=== PATIENT | female | born 1965 | race Caucasian/White ===

== ENCOUNTER 2016-10-02 14:30 | Emergency (ER) | payer BC, MEDICARE ==
[~2016-10-02] VITALS: Ht 177.8 cm; Wt 79.7 kg
[2016-10-02 14:36] VITALS: BP 136/103; PULSE 115; RESP 16; TEMP 98.3; O2SAT 99
[2016-10-02] MEDS ORDERED: LEVO100T63 PO (14:48)
[2016-10-02] MEDS ORDERED: FENT50DI T-DERMAL (14:48)
[2016-10-02] MEDS ORDERED: CYMB60CA PO (14:48)
[2016-10-02] MEDS ORDERED: CLON.5 PO (14:48)
[2016-10-02] MEDS ORDERED: PREG300 PO (14:48)
[2016-10-02] MEDS ORDERED: RITA40CA PO (14:48)
--- NOTE | 2016-10-02 14:50 | PD ---
HPI Chief Complaint: Complaint Time Seen by Provider: 14:48 Travel History International Travel<30 days: No Contact w/Intl Traveler<30days: No Traveled to known affect area: No History of Present Illness HPI Patient comes in requesting a prescription for peridium or something similar. Patient states she's had a burning sensation in her bladder as well as dysuria over the past 2 days. Patient states she's had these previously and feels similar. Patient denies any known fevers, nausea, vomiting, diarrhea, chest pain, or shortness of breath. Patient reports associated back pain is uncertain if it is chronic or acute. Patient states that in the past she's similar issue and has resolved after taking Pyridium. PFSH Past Medical History Cancer: Yes (BREAST AND CERVICAL) Medical other: Yes (NEUROPATHY, DEGENERATIVE DISC, OSTEOPENIA,OSTEOARTHRITIS) ?: Not Past Surgical History Other Surgery: Yes (CHEST WALL RECONSTRUCTION) Social History Alcohol Use: No Tobacco Use: Yes Substance Use: No Allergies-Medications (Allergen,Severity, Reaction): Coded Allergies: No Known Allergies (Unverified , 10/02/16) Reported Meds & Prescriptions Reported Meds & Active Scripts Active Bactrim DS (Sulfamethoxazole-Trimethoprim) 800-160 Mg Tab 1 Tab PO BID Pyridium (Phenazopyridine HCl) 200 Mg Tab 200 Mg PO Q8HR Reported Ritalin LA 24 HR (Methylphenidate HCl) 40 Mg Caper 40 Mg PO BID Fentanyl Patch 72 HR (Fentanyl) 50 Mcg/Hr Patch 50 Mcg T-DERMAL Q72H Remove old patch when new one placed. Cymbalta DR (Duloxetine HCl) 60 Mg Capdr 60 Mg PO BID Klonopin (Clonazepam) 0.5 Mg Tab 0.5 Mg PO BID Lyrica (Pregabalin) 300 Mg Cap 300 Mg PO BID Levoxyl (Levothyroxine Sodium) 100 Mcg Tab 100 Mcg PO DAILY Review of Systems Except as stated in HPI: all other systems reviewed are Neg Physical Exam Narrative GENERAL: Well-developed, well nourished, in no acute distress, and non-ill appearing. SKIN: Focused skin assessment warm and dry. Surgical scar noted lower abdomen. HEAD: Atraumatic. Normocephalic. EYES: Pupils equal and round. EOMI. No scleral icterus. No injection or drainage. ENT: No nasal bleeding or discharge. Mucous membranes pink and moist. NECK: Trachea midline. Supple. No nuclear rigidity. RESPIRATORY: No accessory muscle use. No respiratory distress. GASTROINTESTINAL: Abdomen soft, non-tender, nondistended. Hepatic and splenic margins not palpable. Normal bowel sounds 4. No pulsatile mass. MUSCULOSKELETAL: No obvious deformities. No clubbing. No cyanosis. No edema. Full range of motion. NEUROLOGICAL: Awake and alert. No obvious cranial nerve deficits. Motor grossly within normal limits. Normal speech. PSYCHIATRIC: Appropriate mood and affect; insight and judgment normal. Data Data Last Documented VS Vital Signs Date Time Temp Pulse Resp B/P Pulse Ox O2 Delivery O2 Flow Rate FiO2 10/02/16 14:36 98.3 115 16 136/103 99 Orders Urinalysis - C+S If Indicated (10/02/16 14:38) Phenazopyridine (Pyridium) (10/02/16 15:00) Urine Culture (10/02/16 14:35) Labs Laboratory Tests Test 10/02/16 14:35 Urine Collection Type CLEAN CATCH Urine Color YELLOW Urine Turbidity CLEAR Urine pH 5.0 Urine Specific [place] 1.030 Urine Protein 30 mg/dL Urine Glucose (UA) NEG mg/dL Urine Ketones NEG mg/dL Urine Occult Blood NEG Urine Nitrite NEG Urine Bilirubin NEG Urine Leukocyte Esterase NEG Urine RBC 0-3 /hpf Urine WBC 9-14 /hpf Urine Squamous Epithelial > 8 /hpf Cells Urine Bacteria FEW /hpf Urine Mucus FEW /lpf Microscopic Urinalysis Comment CULTURE INDICATED Urine Collection Time 14:35 [facility] Medical Decision Making Medical Screen Exam Complete: Yes Emergency Medical Condition: Yes Differential Diagnosis UTI, dysuria, urethritis, other Narrative Course The patient presentation with history and evaluation are consistent with UTI. There is no evidence of pyelonephritis. The patient is tolerating fluids and no fever. There is no clinical evidence to suggest atypical cervicitis, PID, appendicitis. The patient was discharged on antibiotics and given warnings to return if condition worsens in any way, fever, vomiting and unable to tolerate medications or fluids, back pain or as needed. The patient was instructed to follow up with their physician. The patient agrees with plan of care. Patient in no obvious distress upon re-evaluation. All pertinent laboratory result(s) discussed with patient/family. Patient was asked if they wanted to speak to my attending, which the patient did not wish to do at this time. Any questions/concerns in reference to patient diagnosis/condition discussed and clarified prior to patient's discharge. Reinforced sheer importance of close follow up with patient's primary physician or primary care clinic. Instructed patient to return to ED immediately, if symptoms return/worsen. Pt showed understanding of above instructions. Further instructions and recommendations were detailed in discharge paperwork. Pt ambulated without difficulty out of ED at discharge. Diagnosis Primary Impression: Urinary tract infection Qualified Code: N39.0 - Urinary tract infection without hematuria, site unspecified Patient Instructions: General Instructions, Urinary Tract Infection in Women ( ED) Additional Instructions: Follow-up with your primary care physician in 2-3 days for reevaluation. Take all medication as prescribed. Drink plenty of non-caffeinated and nonalcoholic fluids. Return to the emergency department if symptoms get worse. Med/Other Pt SpecificInfo: Prescription(s) given Scripts Sulfamethoxazole-Trimethoprim (Bactrim DS)800-160 Mg Tab1 Tab PO BID #6 TAB Ref 0 Prov:Mauro Alcala MD 10/02/16 Phenazopyridine (Pyridium)200 Mg [id number] Mg PO Q8HR #6 TAB Ref 0 Prov:Mauro Alcala MD 10/02/16 Disposition: 01 DISCHARGE HOME Condition: Stable Yoel Coleman Oct 02, 2016 14:50
[2016-10-02 14:56] LABS: BLOOD, URINE NEG (NEG); GLUCOSE,URINE NEG (NEG); KETONE, URINE NEG (NEG); NITRITE,URINE NEG (NEG)
[2016-10-02] MEDS ORDERED: PHENAZOPYRIDINE HCL 200 MG TAB PO ONE (15:00)
[2016-10-02 15:14] LABS: METHOD OF COLLECTION CLEAN CATCH; URINE COLOR YELLOW (YELLW/STRAW)
[2016-10-02 15:15] LABS: BACTERIA, URINE FEW /hpf; COMMENT (UR) CULTURE INDICATED; CULTURE IF INDICATED CULTURE INDICATED; MUCUS URINE FEW /lpf (OCC); RBC, URINE 0-3 /hpf (0-3); SQUAMOUS EPITHELIAL CELL URINE > 8 /hpf (0-5)
[2016-10-02] MEDS ORDERED: BACT800T5 PO (15:21)
[2016-10-02] MEDS ORDERED: PYRI200T4 PO (15:21)
== END 2016-10-02 15:44 | disposition home or self-care (01) ==
LOC: PHEFT 14:30
DX: N39.0 Urinary tract infection, site not specified (principal); B96.89 Other specified bacterial agents as the cause of diseases classified elsewhere; Z72.0 Tobacco use
CPT/HCPCS: 81001; 87086; 99283

== ENCOUNTER 2016-10-30 13:57 | Emergency (ER) | payer MEDICARE ==
[~2016-10-30] VITALS: Ht 157.5 cm; Wt 75.3 kg
[~2016-10-30 13:57] MED LIST: BACT800T5 PO; CLON.5 PO; CYMB60CA PO; FENT50DI T-DERMAL; LEVO100T63 PO; PREG300 PO; PYRI200T4 PO; RITA40CA PO
[2016-10-30 14:00] VITALS: PULSE 114; RESP 16; TEMP 98.4; O2SAT 100
[2016-10-30 14:53] LABS: BLOOD, URINE NEG (NEG); GLUCOSE,URINE NEG (NEG); KETONE, URINE TRACE mg/dL (NEG); NITRITE,URINE NEG (NEG)
--- NOTE | 2016-10-30 14:53 | PD ---
HPI . Urinary symptoms Chief Complaint: Complaint Time Seen by Provider: 14:10 Travel History International Travel<30 days: No Contact w/Intl Traveler<30days: No Traveled to known affect area: No History of Present Illness HPI Patient presents with dysuria, frequency and urgency for over a week. The patient reports frequent similar episodes which will usually resolve with Pyridium. The patient states that she has undergone chemotherapy and radiation therapy for both breast cancer and cervical cancer. She has a resultant neuropathy as well as frequent urinary tract infections. The patient states that she now feels a lump in her external genitalia. Patient reports chronic pain related to her neuropathy and rates it as 5/10. PFSH Past Medical History Cancer: Yes (BREAST AND CERVICAL) Chemotherapy: Yes (2009) Respiratory: Yes (Asthma) ?: Not Past Surgical History Hysterectomy: Yes Other Surgery: Yes (CHEST WALL RECONSTRUCTION) Social History Alcohol Use: No Tobacco Use: Yes Substance Use: No Allergies-Medications (Allergen,Severity, Reaction): Coded Allergies: No Known Allergies (Unverified , 10/30/16) Reported Meds & Prescriptions Reported Meds & Active Scripts Active Reported Ritalin LA 24 HR (Methylphenidate HCl) 40 Mg Caper 40 Mg PO BID Fentanyl Patch 72 HR (Fentanyl) 50 Mcg/Hr Patch 50 Mcg T-DERMAL Q72H Remove old patch when new one placed. Cymbalta DR (Duloxetine HCl) 60 Mg Capdr 60 Mg PO BID Klonopin (Clonazepam) 0.5 Mg Tab 0.5 Mg PO BID Lyrica (Pregabalin) 300 Mg Cap 300 Mg PO BID Levoxyl (Levothyroxine Sodium) 100 Mcg Tab 100 Mcg PO DAILY Review of Systems Except as stated in HPI: all other systems reviewed are Neg General / Constitutional: Positive: Chills, Weight Loss Gastrointestinal: Positive: Nausea, Vomiting, Loss of Appetite, No: Diarrhea Genitourinary: Positive: Urgency, Frequency, Dysuria, No: Hematuria Musculoskeletal: Positive: Pain Neurologic: Positive: Paresthesia, Sensory Disturbance Psychiatric: Positive: Anxiety, Depression Physical Exam Narrative GENERAL: Awake and alert. Very expressive. SKIN: Warm and dry. HEAD: Atraumatic. Normocephalic. EYES: Pupils equal and round. Extraocular movements are intact. ENT: No nasal bleeding or discharge. Mucous membranes pink and moist. NECK: Trachea midline. Neck is supple. CARDIOVASCULAR: Regular rate and rhythm. RESPIRATORY: No accessory muscle use. GASTROINTESTINAL: Abdomen soft, non-tender, nondistended. : There is a nodule between the clitoris and the urethra. This probably about 3 or 4 mm in diameter. It is tender. MUSCULOSKELETAL: No obvious deformities. No edema. NEUROLOGICAL: Awake and alert. No obvious cranial nerve deficits. Motor grossly within normal limits. Normal speech. PSYCHIATRIC: Appropriate mood and affect; insight and judgment normal. Data Data Last Documented VS Vital Signs Date Time Temp Pulse Resp B/P Pulse Ox O2 Delivery O2 Flow Rate FiO2 10/30/16 14:00 98.4 114 16 100 Orders Urinalysis - C+S If Indicated (10/30/16 14:09) Urine Culture (10/30/16 14:13) Labs Laboratory Tests Test 10/30/16 14:13 Urine Collection Type CLEAN CATCH Urine Color YELLOW Urine Turbidity CLEAR Urine pH 5.0 Urine Specific [place] 1.025 Urine Protein 100 mg/dL Urine Glucose (UA) NEG mg/dL Urine Ketones TRACE mg/dL Urine Occult Blood NEG Urine Nitrite NEG Urine Bilirubin NEG Urine Leukocyte Esterase TRACE Urine RBC 10-14 /hpf Urine WBC 20-24 /hpf Urine Squamous Epithelial > 8 /hpf Cells Urine Renal Epithelial Cells 0-5 /hpf Urine Bacteria MOD /hpf Urine Hyaline Casts 25-49 /lpf Microscopic Urinalysis Comment CULTURE INDICATED Urine Collection Time 14:13 [facility] Medical Decision Making Medical Screen Exam Complete: Yes Emergency Medical Condition: Yes Differential Diagnosis Final differential diagnosis of urinary symptoms includes but is not limited to UTI, kidney stone, pyelonephritis, bacterial vaginosis, yeast infection, urinary retention Narrative Course Patient presents with symptoms compatible with UTI. She also has a nodule on her external genitalia. I will refer her [facility] for further evaluation of that. Laboratory Tests Test 10/30/16 14:13 Urine Collection Type CLEAN CATCH Urine Color YELLOW Urine Turbidity CLEAR Urine pH 5.0 Urine Specific [place] 1.025 Urine Protein 100 mg/dL Urine Glucose (UA) NEG mg/dL Urine Ketones TRACE mg/dL Urine Occult Blood NEG Urine Nitrite NEG Urine Bilirubin NEG Urine Leukocyte Esterase TRACE Urine RBC 10-14 /hpf Urine WBC 20-24 /hpf Urine Squamous Epithelial > 8 /hpf Cells Urine Renal Epithelial Cells 0-5 /hpf Urine Bacteria MOD /hpf Urine Hyaline Casts 25-49 /lpf Microscopic Urinalysis Comment CULTURE INDICATED Urine Collection Time 14:13 Diagnosis Primary Impression: Urinary tract infection Qualified Code: N30.00 - Acute cystitis without hematuria Additional Impression: Mass of female genital structure Referrals: Nikki Gaytan MD Patient Instructions: General Instructions, Urinary Tract Infection in Women ( [place]) Med/Other Pt SpecificInfo: Prescription(s) given Scripts Phenazopyridine (Pyridium)100 Mg [id number] Mg PO Q8H PRN (DYSURIA) 10 Days Ref 0 Prov:Madeleine Trinh MD 10/30/16 Nitrofurantoin Monohydrate Macrocrystals (Macrobid)100 Mg [id number] Mg PO BID #20 CAP Ref 0 Prov:Madeleine Trinh MD 10/30/16 Disposition: 01 DISCHARGE HOME Condition: Stable Madeleine Trinh MD October 30, 2016 14:53
[2016-10-30 15:00] LABS: METHOD OF COLLECTION CLEAN CATCH
[2016-10-30 15:01] LABS: URINE COLOR YELLOW (YELLW/STRAW)
[2016-10-30 15:02] LABS: COMMENT (UR) CULTURE INDICATED; CULTURE IF INDICATED CULTURE INDICATED; RENAL EPITHELIAL CELLS 0-5 /hpf; SQUAMOUS EPITHELIAL CELL URINE > 8 /hpf (0-5)
[2016-10-30 15:03] LABS: BACTERIA, URINE MOD /hpf
[2016-10-30 15:05] VITALS: BP 131/70; PULSE 68; RESP 20; O2SAT 99
[2016-10-30] MEDS ORDERED: MACR100C2 PO (15:08)
[2016-10-30] MEDS ORDERED: PHEN0.4T PO (15:08)
== END 2016-10-30 15:49 | disposition home or self-care (01) ==
LOC: PHED 13:57
DX: N39.0 Urinary tract infection, site not specified (principal); R11.2 Nausea with vomiting, unspecified; J45.909 Unspecified asthma, uncomplicated; Z79.899 Other long term (current) drug therapy; Z72.0 Tobacco use
CPT/HCPCS: 81001; 87086; 99284

== ENCOUNTER 2017-06-09 06:19 | Day surgery (SDC) | payer OTHER ==
[~2017-06-09] VITALS: Ht 165.1 cm; Wt 72.3 kg
[~2017-06-09 06:19] MED LIST changes: -BACT800T5 PO; +MACR100C2 PO; +PHEN0.4T PO; -PYRI200T4 PO
[2017-06-09 06:35] VITALS: BP 155/84; PULSE 101; RESP 20; TEMP 99.6; O2SAT 96
[2017-06-09] MEDS ORDERED: ZOLO50TA PO (06:45)
[2017-06-09] MEDS ORDERED: FOSA70TA PO (06:45)
[2017-06-09] MEDS ORDERED: OXYC-395 PO (06:46)
[2017-06-09] MEDS ORDERED: ATOR10TA15 PO (06:48)
[2017-06-09] MEDS ORDERED: LIDO1PAD52 TOPICAL (06:49)
[2017-06-09] MEDS ORDERED: [UNRECOGNIZED DRUG - CODE] PO (06:51)
[2017-06-09] MEDS ORDERED: SODIUM CHLORIDE 0.9% 1000 ML IV SCH ×2 (07:00→08:30)
[2017-06-09] MEDS ORDERED: VANCOMYCIN HCL 1000 MG VIAL ONE (07:26)
[2017-06-09] MEDS ORDERED: SODIUM CHLOR 0.9% 250 ML INJ 250 ML ONE (07:26)
[2017-06-09] MEDS ORDERED: VANCOMYCIN 1000 MG/NS 250 ML - implanted port/tunneled catheter IV SCH ×2 (07:26)
[2017-06-09] MEDS ORDERED: POVIDONE IODINE 5% (ANTISEPSIS KIT) 4 APPLICATIONS EACH NARE SCH (07:30)
[2017-06-09] MEDS ORDERED: CHLORHEXIDINE GLUCONATE 2 % 1 PACK (2 CLOTHS) TOPICAL SCH (07:30)
[2017-06-09] MEDS ORDERED: ceFAZolin 2 GM PREMIX 50 ML - implanted port/tunneled catheter insertion IV SCH (07:39)
[2017-06-09] MEDS ORDERED: MIDAZOLAM HCL 2 MG/2 ML VIAL ONE (07:39)
[2017-06-09] MEDS ORDERED: ceFAZolin 2 GM PREMIX 50 ML ONE (07:39)
[2017-06-09 09:00] VITALS: BP 130/68; PULSE 85; RESP 17; TEMP 98.3; O2SAT 94
[2017-06-09 09:15] VITALS: BP 150/74; PULSE 76; RESP 18; O2SAT 97
--- NOTE | 2017-06-09 09:26 | PD.RAD ---
Post Procedure Progress Note Pre Procedure Diagnosis: (1) Vulvar cancer, carcinoma Post Procedure Diagnosis: (1) Vulvar cancer, carcinoma Procedure Date: Jun 09, 2017 Supervising Radiologist: Rell Dale Estimated blood loss: 3cc Anesthesia: Local, Conscious Sedation Plan of Activity Patient to Unit: [facility]OPU Patient Condition: Good Additional Comments: Port placed via the right IJ Port in good position OK for use Full dictated report to follow See PACS Report for procedural detail/treatment Rell Dale MD Jun 09, 2017 09:26
[2017-06-09] MEDS ORDERED: SODIUM CHLORIDE 0.9% FLUSH 10 ML FLUSH IVF PRN (09:30)
[2017-06-09 09:45] VITALS: BP 123/71; PULSE 82; RESP 17; O2SAT 96
[2017-06-09 10:15] VITALS: BP 114/68; PULSE 78; RESP 18; O2SAT 97
--- NOTE | 2017-06-09 14:03 | RADRPT ---
EXAM DATE/TIME: 06/09/2017 08:49 [facility] COMPARISON: No previous studies available for comparison. INDICATIONS : Patient presents with squamous cell carcinoma in need of port placement for treatment. MEDICAL HISTORY : Anemia Anxiety Arthritis Cancer GERD Osteoarthritis Osteoporosis Peptic Ulcer disease Periperal neuropathy Thyroid disease Uterine fibroids SURGICAL HISTORY : Ovarian tumor removal Tubal ligation Breast biopsy 2007 Hysterectomy in 2005 ENCOUNTER: Initial ACUITY: 2 months PAIN SCORE: 0/10 LOCATION: N/A FLUORO TIME: 0.6 minutes IMAGE SERIES: SEDATION TIME: 30 minutes ACCESS: Right internal jugular vein SEDATION: 1.) 4 midazolam (Versed) IV 2.) 200 mcg fentanyl (Sublimaze) IV Prophylactic antibiotics were administered with appropriate pre-procedure timing. Vancomycin within 2 hours of procedure, Ancef (or alternative) within 1 hour of procedure. DEVICE: 1. [address] [place] single lumen Smart Port CT PROCEDURE : 1. Continuous pulse oximetry and EKG monitoring. 2. Intravenous conscious sedation. 3. Ultrasound guidance for venous access. 4. Fluoroscopic guided implantable central venous port placement. The patient was placed supine. The neck was prepped in sterile fashion. Full sterile technique was u sed, including cap, mask, sterile gloves and gown, and a large sterile sheet. Hand hygiene and 2% ch lorhexidine Betadine was utilized per protocol for cutaneous antisepsis with appropriate dry time for site. Sterile gel and sterile probe cover were utilized for ultrasound guidance. The skin and sub cutaneous tissues were infiltrated with local anesthetic solution. Under direct ultrasound guidance, central venous access was accomplished in the targeted vessel. The ultrasound images depicting access guidance were stored and saved to PACS for permanent record. A s ubcutaneous pocket was created using blunt dissection. The port was introduced to the pocket. The c atheter tubing was fed through a subcutaneous tunnel to the venotomy site. The catheter tubing was c ut to a suitable length and then was introduced through a valved Peel-Away sheath and positioned with catheter tubing tip at the cavo-atrial junction level. The pocket incision was closed with subcutic ular Vicryl suture. Steri-Strips were applied. The port was flushed and locked with heparin solutio n per protocol. Sterile dressing was applied to the site. The patient tolerated the procedure well. Conscious sedation was performed with the prescribed dosages and duration as above in the presence of an independent trained radiology nurse to assist in the monitoring of the patient. EKG and oximetry remained stable throughout the procedure. The patient tolerated the procedure well and there were no complications. The patient was sent to post anesthesia recovery in stable condition. CONCLUSION: Uncomplicated ultrasound and fluoroscopic guided implanted central venous port catheter placement as described in detail above. An 8 [place]ese Power port was placed. Rell Dale MD on June 09, 2017 at 14:01 Board Certified Radiologist. This report was verified electronically.
== END 2017-06-09 11:20 | disposition home or self-care (01) ==
LOC: HROP 06:19 → HRIP 06:20 → HROP 11:20
PROVIDERS: ATTEND Obstetrics & Gynecology Gynecologic Oncology
DX: Z45.2 Encounter for adjustment and management of vascular access device (principal); C51.9 Malignant neoplasm of vulva, unspecified; C50.912 Malignant neoplasm of unspecified site of left female breast; E07.9 Disorder of thyroid, unspecified; F41.9 Anxiety disorder, unspecified; K21.9 Gastro-esophageal reflux disease without esophagitis; M19.90 Unspecified osteoarthritis, unspecified site; M81.0 Age-related osteoporosis without current pathological fracture
CPT/HCPCS: 36561; 76937; 77001; 99152; 99153; C1788; J0690; J1642; J2250; J3010; J3370; J7030; J7050

== ENCOUNTER 2017-07-27 16:29 | Emergency (ER) | payer OTHER ==
[~2017-07-27] VITALS: Ht 180.3 cm; Wt 67.0 kg
[~2017-07-27 16:29] MED LIST changes: +ATOR10TA15 PO; -CYMB60CA PO; -FENT50DI T-DERMAL; +FOSA70TA PO; +LIDO1PAD52 TOPICAL; -MACR100C2 PO; +OXYC-395 PO; -PHEN0.4T PO; -PREG300 PO; +ZOLO50TA PO; +[UNRECOGNIZED DRUG - CODE] PO
[2017-07-27 16:49] VITALS: BP 123/73; PULSE 140; RESP 20; TEMP 99.2; O2SAT 98
[2017-07-27 19:38] LABS: AUTOMATED NEUTROPHIL # 3.9 TH/MM3 (1.8-7.7); BASOPHIL % 0.3 % (0.0-2.0); EOSINOPHIL # 0.3 TH/MM3 (0-0.4); EOSINOPHIL % 4.5 % (0.0-4.0); HEMATOCRIT 41.1 % (35.0-46.0); HEMOGLOBIN 14.8 GM/DL (11.6-15.3); LYMPH % 19.2 % (9.0-44.0); LYMPHOCYTE # 1.1 TH/MM3 (1.0-4.8); MEAN CELL VOLUME 89.6 FL (80.0-100.0); MEAN CORPUSCULAR HEMOGLOBIN 32.2 PG (27.0-34.0); MEAN CORPUSCULAR HGB CONC 35.9 % (32.0-36.0); MEAN PLATELET VOLUME 7.2 FL (7.0-11.0); MONO % 5.1 % (0.0-8.0); MONOCYTE # 0.3 TH/MM3 (0-0.9); NEUT % 70.9 % (16.0-70.0); PLATELET COUNT 279 TH/MM3 (150-450); RED BLOOD COUNT 4.59 MIL/MM3 (4.00-5.30); RED CELL DISTRIBUTION WIDTH 14.2 % (11.6-17.2); WHITE BLOOD COUNT 5.6 TH/MM3 (4.0-11.0)
[2017-07-27 19:57] LABS: PROTHROMBIN TIME - PATIENT 10.1 SEC (9.8-11.6)
[2017-07-27 20:24] LABS: ALBUMIN 4.1 GM/DL (3.4-5.0); ALKALINE PHOSPHATASE 93 U/L (45-117); ALT (GPT) 57 U/L (10-53); AST (GOT) 49 U/L (15-37); BICARBONATE 27.8 MEQ/L (21.0-32.0); BLOOD UREA NITROGEN 19 MG/DL (7-18); CALCIUM 9.5 MG/DL (8.5-10.1); CHLORIDE 92 MEQ/L (98-107); CREATININE 0.97 MG/DL (0.50-1.00); GLOMERULAR FILTRATION RATE 60 ML/MIN (>89); GLUCOSE,RANDOM 114 MG/DL (74-106); SODIUM (NA) 132 MEQ/L (136-145); TOTAL BILIRUBIN ADULT 0.6 MG/DL (0.2-1.0); TOTAL PROTEIN 8.1 GM/DL (6.4-8.2)
[2017-07-27] MEDS ORDERED: POTASSIUM CHLORIDE 20 MEQ CONTROLLED RELEASE TAB PO ONE (22:30)
[2017-07-27 23:21] LABS: MAGNESIUM 1.6 MG/DL (1.5-2.5)
[2017-07-27 23:25] LABS: ACETAMINOPHEN LESS THAN 2.0 MCG/ML (10.0-30.0)
--- NOTE | 2017-07-27 23:57 | PD ---
HPI . Generalized weakness Chief Complaint: General Weakness Time Seen by Provider: 22:12 Travel History International Travel<30 days: No Contact w/Intl Traveler<30days: No Traveled to known affect area: No History of Present Illness HPI 52-year-old female who notes on presentation "I have had cancer 3 times, I am hungry and I want to sleep. I need something to help me sleep I want yogurt and a 7 up." Patient not offering further history to this examiner. Patient is noted to have a history of bipolar, and has been noncompliant with her medications for quite some time. Patient does get radiation treatments for recurrence of cervical and/or breast cancer, patient's was to take potassium supplementation as well for which she is noncompliant. [facility] Past Medical History Narrative Medical Past medical history reviewed Cancer: Yes (BREAST, CERVICAL) Cardiovascular Problems: No Chemotherapy: Yes Diabetes: No Endocrine: No Gastrointestinal Disorders: Yes (gerd) Genitourinary: No Hepatitis: No Hiatal Hernia: No Immune Disorder: No Musculoskeletal: No Neurologic: No Psychiatric: Yes (anxiety) Reproductive: No Respiratory: Yes (Asthma) Radiation Therapy: Yes Thyroid Disease: Yes (hypothyroid) Tetanus Vaccination: Unknown ?: Not Past Surgical History Hysterectomy: Yes Other Surgery: Yes (CHEST WALL RECONSTRUCTION) Social History Alcohol Use: No Tobacco Use: Yes Substance Use: No Allergies-Medications (Allergen,Severity, Reaction): Coded Allergies: No Known Allergies (Unverified Allergy, Unknown, 07/27/17) Reported Meds & Prescriptions Reported Meds & Active Scripts Active Reported Atorvastatin (Atorvastatin Calcium) 10 Mg Tab 10 Mg PO HS Oxycodone (Oxycodone HCl) 10 Mg Tab 10 Mg PO Q4H PRN Zoloft (Sertraline HCl) 50 Mg Tab 50 Mg PO DAILY Fosamax (Alendronate Sodium) 70 Mg Tab 70 Mg PO Q7D Levoxyl (Levothyroxine Sodium) 100 Mcg Tab 100 Mcg PO DAILY Narrative Medication Allergies and medications reviewed allergies and medications reviewed Review of Systems ROS Limitations: Poor Historian Except as stated in HPI: all other systems reviewed are Neg General / Constitutional: No: Fever Eyes: No: Visual changes HENT: No: Headaches Cardiovascular: No: Chest Pain or Discomfort Respiratory: No: Shortness of Breath Gastrointestinal: No: Abdominal Pain Genitourinary: No: Dysuria Musculoskeletal: No: Pain Skin: No Rash Neurologic: No: Weakness Psychiatric: Positive: Disorder of Thought, No: Anxiety, Depression, Suicidal Ideations, Mood Disorder, Substance Abuse, Homicidal Ideation Endocrine: No: Polydipsia Hematologic/Lymphatic: No: Easy Bruising Physical Exam Narrative GENERAL: Awake alert, oriented 3, slightly pressured speech, see HPI. SKIN: Warm and dry. No diaphoresis cyanosis or pallor HEAD: Atraumatic. Normocephalic. EYES: Pupils equal and round. No scleral icterus. No injection or drainage. ENT: No nasal bleeding or discharge. Mucous membranes pink and moist. NECK: Trachea midline. No JVD. CARDIOVASCULAR: Regular rate and rhythm. RESPIRATORY: No accessory muscle use. Clear to auscultation. Breath sounds equal bilaterally. GASTROINTESTINAL: Abdomen soft, non-tender, nondistended. Hepatic and splenic margins not palpable. MUSCULOSKELETAL: Extremities without clubbing, cyanosis, or edema. No obvious deformities. NEUROLOGICAL: Awake and alert. No obvious gross focal deficits PSYCHIATRIC: slightly pressured speech, slightly manic. Patient not answering questions appropriately Data Data Last Documented VS Vital Signs Date Time Temp Pulse Resp B/P (MAP) Pulse Ox O2 Delivery O2 Flow Rate FiO2 07/27/17 22:07 Room Air 07/27/17 16:49 99.2 140 20 123/73 (90) 98 Orders Orders Electrocardiogram (07/27/17 ) Complete Blood Count With Diff (07/27/17 17:01) Comprehensive Metabolic Panel (07/27/17 17:01) Lipase (07/27/17 17:01) Prothrombin Time / Inr (Pt) (07/27/17 17:01) Act Partial Throm Time (Ptt) (07/27/17 17:01) Urinalysis - C+S If Indicated (07/27/17 17:01) Magnesium (Mg) (07/27/17 22:24) Drug Screen, Random Urine (07/27/17 22:24) Alcohol (Ethanol) (07/27/17 22:24) Salicylates (Aspirin) (07/27/17 22:24) Tylenol (Acetaminophen) (07/27/17 22:24) Potassium Chloride (Kcl) (07/27/17 22:30) Psych Screen (07/27/17 23:38) Ct Brain W/O Iv Contrast(Rout) (07/27/17 ) Labs Laboratory Tests Test 07/27/17 18:44 07/27/17 22:35 White Blood Count 5.6 TH/MM3 Red Blood Count 4.59 MIL/MM3 Hemoglobin 14.8 GM/DL Hematocrit 41.1 % Mean Corpuscular Volume 89.6 FL Mean Corpuscular Hemoglobin 32.2 PG Mean Corpuscular Hemoglobin Concent 35.9 % Red Cell Distribution Width 14.2 % Platelet Count 279 TH/MM3 Mean Platelet Volume 7.2 FL Neutrophils (%) (Auto) 70.9 % Lymphocytes (%) (Auto) 19.2 % Monocytes (%) (Auto) 5.1 % Eosinophils (%) (Auto) 4.5 % Basophils (%) (Auto) 0.3 % Neutrophils # (Auto) 3.9 TH/MM3 Lymphocytes # (Auto) 1.1 TH/MM3 Monocytes # (Auto) 0.3 TH/MM3 Eosinophils # (Auto) 0.3 TH/MM3 Basophils # (Auto) 0.0 TH/MM3 CBC Comment DIFF FINAL Differential Comment Prothrombin Time 10.1 SEC Prothromb Time International Ratio 1.0 RATIO Activated Partial Thromboplast Time 22.6 SEC Blood Urea Nitrogen 19 MG/DL Creatinine 0.97 MG/DL Random Glucose 114 MG/DL Total Protein 8.1 GM/DL Albumin 4.1 GM/DL Calcium Level 9.5 MG/DL Alkaline Phosphatase 93 U/L Aspartate Amino Transf (AST/SGOT) 49 U/L Alanine Aminotransferase (ALT/SGPT) 57 U/L Total Bilirubin 0.6 MG/DL Sodium Level 132 MEQ/L Potassium Level 2.8 MEQ/L Chloride Level 92 MEQ/L Carbon Dioxide Level 27.8 MEQ/L Anion Gap 12 MEQ/L Estimat Glomerular Filtration Rate 60 ML/MIN Lipase 234 U/L Magnesium Level 1.6 MG/DL Salicylates Level 1.8 MG/DL Acetaminophen Level LESS THAN 2.0 MCG/ML Ethyl Alcohol Level LESS THAN 3 MG/DL MDM Medical Decision Making Medical Screen Exam Complete: Yes Emergency Medical Condition: Yes Medical Record Reviewed: Yes Differential Diagnosis Bipolar, manic phase, medication noncompliance Narrative Course Laboratory examinations no significant abnormalities. CT had no evidence of metastatic disease or other acute intracranial abnormalities Patient medically cleared for psychiatric evaluation Michael Odonnell MD Jul 27, 2017 23:57
--- NOTE | 2017-07-28 01:31 | RADRPT ---
EXAM DATE/TIME: 07/28/2017 01:03 [facility] COMPARISON: No previous studies available for comparison. INDICATIONS : Altered mental status. RADIATION DOSE: 56.77 CTDIvol (mGy) MEDICAL HISTORY : Carcinoma, breast. Chemotherapy SURGICAL HISTORY : None. ENCOUNTER: Initial ACUITY: 1 day PAIN SCALE: 0/10 LOCATION: cranial TECHNIQUE: Multiple contiguous axial images were obtained of the head. Using automated exposure control and adj ustment of the mA and/or kV according to patient size, radiation dose was kept as low as reasonably a chievable to obtain optimal diagnostic quality images. DICOM format image data is available electro nically for review and comparison. FINDINGS: CEREBRUM: The ventricles are normal for age. No evidence of midline shift, mass lesion, hemorrhage or acute in farction. No extra-axial fluid collections are seen. POSTERIOR FOSSA: The cerebellum and brainstem are intact. The 4th ventricle is midline. The cerebellopontine angle i s unremarkable. EXTRACRANIAL: The visualized portion of the orbits is intact. SKULL: The calvaria is intact. No evidence of skull fracture. CONCLUSION: Negative noncontrast head CT Hood Ibrahim MD on July 28, 2017 at 1:29 Board Certified Radiologist. This report was verified electronically.
[2017-07-28 07:05] VITALS: BP 106/71; PULSE 86; RESP 16; TEMP 98.1; O2SAT 98
--- NOTE | 2017-07-28 08:10 | EKG ---
Date Performed: 07/27/2017 Time Performed: 18:38:30 PTAGE: 52 years EKG: SINUS TACHYCARDIA POSSIBLE RIGHT ATRIAL ENLARGEMENT LEFT ATRIAL ENLARGEMENT PATTERN CONSIST ENT WITH PULMONARY DISEASE INFERIOR MYOCARDIAL INFARCTION ABNORMAL ECG NO PREVIOUS TRACING DOCTOR: Hubert Lance Interpretating Date/Time 07/28/2017 08:09:51
--- NOTE | 2017-07-28 10:25 | PD ---
Physical Exam Narrative Patient was seen by Dr. Odonnell overnight. She says that she came in because of nausea and vomiting. She says she last received chemo on Wednesday. She says she has anti-nausea medication at home. Exam shows no abdominal tenderness. Data Data Last Documented VS Vital Signs Date Time Temp Pulse Resp B/P (MAP) Pulse Ox O2 Delivery O2 Flow Rate FiO2 07/28/17 07:10 86 16 98 Room Air 07/28/17 07:05 98.1 106/71 (83) Orders Orders Electrocardiogram (07/27/17 ) Complete Blood Count With Diff (07/27/17 17:01) Comprehensive Metabolic Panel (07/27/17 17:01) Lipase (07/27/17 17:01) Prothrombin Time / Inr (Pt) (07/27/17 17:01) Act Partial Throm Time (Ptt) (07/27/17 17:01) Urinalysis - C+S If Indicated (07/27/17 17:01) Magnesium (Mg) (07/27/17 22:24) Drug Screen, Random Urine (07/27/17 22:24) Alcohol (Ethanol) (07/27/17 22:24) Salicylates (Aspirin) (07/27/17 22:24) Tylenol (Acetaminophen) (07/27/17 22:24) Potassium Chloride (Kcl) (07/27/17 22:30) Psych Screen (07/27/17 23:38) Ct Brain W/O Iv Contrast(Rout) (07/27/17 ) Labs Laboratory Tests Test 07/27/17 18:44 07/27/17 22:35 White Blood Count 5.6 TH/MM3 Red Blood Count 4.59 MIL/MM3 Hemoglobin 14.8 GM/DL Hematocrit 41.1 % Mean Corpuscular Volume 89.6 FL Mean Corpuscular Hemoglobin 32.2 PG Mean Corpuscular Hemoglobin Concent 35.9 % Red Cell Distribution Width 14.2 % Platelet Count 279 TH/MM3 Mean Platelet Volume 7.2 FL Neutrophils (%) (Auto) 70.9 % Lymphocytes (%) (Auto) 19.2 % Monocytes (%) (Auto) 5.1 % Eosinophils (%) (Auto) 4.5 % Basophils (%) (Auto) 0.3 % Neutrophils # (Auto) 3.9 TH/MM3 Lymphocytes # (Auto) 1.1 TH/MM3 Monocytes # (Auto) 0.3 TH/MM3 Eosinophils # (Auto) 0.3 TH/MM3 Basophils # (Auto) 0.0 TH/MM3 CBC Comment DIFF FINAL Differential Comment Prothrombin Time 10.1 SEC Prothromb Time International Ratio 1.0 RATIO Activated Partial Thromboplast Time 22.6 SEC Blood Urea Nitrogen 19 MG/DL Creatinine 0.97 MG/DL Random Glucose 114 MG/DL Total Protein 8.1 GM/DL Albumin 4.1 GM/DL Calcium Level 9.5 MG/DL Alkaline Phosphatase 93 U/L Aspartate Amino Transf (AST/SGOT) 49 U/L Alanine Aminotransferase (ALT/SGPT) 57 U/L Total Bilirubin 0.6 MG/DL Sodium Level 132 MEQ/L Potassium Level 2.8 MEQ/L Chloride Level 92 MEQ/L Carbon Dioxide Level 27.8 MEQ/L Anion Gap 12 MEQ/L Estimat Glomerular Filtration Rate 60 ML/MIN Lipase 234 U/L Magnesium Level 1.6 MG/DL Salicylates Level 1.8 MG/DL Acetaminophen Level LESS THAN 2.0 MCG/ML Ethyl Alcohol Level LESS THAN 3 MG/DL MDM Supervised Visit with CANDIE: No Narrative Course Patient states, "I want some food." When asked why she came in though, she says she cannot eat. She also says she cannot sleep. I asked the patient if she had food at home, she said yes. She was able to drink Gatorade without vomiting. She will be discharged home to follow up with her doctors. She never had any psychiatric complaints. She denies any suicidal or homicidal ideation. Diagnosis Primary Impression: Nausea & vomiting Qualified Codes: R11.2 - Nausea with vomiting, unspecified Patient Instructions: Acute Nausea and Vomiting (ED), General Instructions Additional Instruction: Drink plenty of fluids. Follow up with your doctors. Return to the ED as needed for any worsening symptoms. Disposition: 01 DISCHARGE HOME Condition: Stable Aster Eldridge MD Jul 28, 2017 10:25
[2017-07-28 10:50] VITALS: BP 130/77; TEMP 97.8
== END 2017-07-28 10:54 | disposition home or self-care (01) ==
LOC: NEPE 16:29
DX: R11.2 Nausea with vomiting, unspecified (principal); E03.9 Hypothyroidism, unspecified; Z72.0 Tobacco use; Z79.899 Other long term (current) drug therapy
CPT/HCPCS: 70450; 80053; 80307; 83690; 83735; 85025; 85610; 85730; 93005; 99285; J1642

== ENCOUNTER 2017-08-07 04:28 | Emergency (ER) | payer OTHER ==
[~2017-08-07 04:28] MED LIST changes: -CLON.5 PO; -LIDO1PAD52 TOPICAL; -RITA40CA PO; -[UNRECOGNIZED DRUG - CODE] PO
[2017-08-08] MEDS ORDERED: OMEP20CA2 PO (06:58)
[2017-08-08] MEDS ORDERED: GABA800T PO (06:59)
== END 2017-08-07 04:47 | disposition left against medical advice (07) ==
LOC: NED 04:28
DX: Z00.00 Encounter for general adult medical examination without abnormal findings (principal); Z53.21 Procedure and treatment not carried out due to patient leaving prior to being seen by health care provider
CPT/HCPCS: 99281

== ENCOUNTER 2017-08-07 05:19 | Observation (INO) | payer MEDICARE, OTHER ==
[~2017-08-07] VITALS: Ht 179.1 cm; Wt 70.8 kg
[2017-08-07] VITALS (8 sets, daily range): BP systolic 108–139; BP diastolic 59–73; PULSE 74–103; RESP 16–18; TEMP 97.1–98.2; O2SAT 92–99
--- NOTE | 2017-08-07 05:46 | PD ---
HPI Chief Complaint: Numbness/Tingling Time Seen by Provider: 05:31 Travel History International Travel<30 days: No Contact w/Intl Traveler<30days: No Traveled to known affect area: No History of Present Illness HPI 52 y/o female presents stating she got chemotherapy today in the clinic with Dr. Aguilar and she tried to check an earlier here but it was too busy so she left before being seen. Report was that she was found sleeping on a couch and she wanted to check back in for neuropathy in her feet. She states Dr. Aguilar is her oncologist. She denies any fever or other concurrent complaints at this time. She states she had blood work done before chemotherapy yesterday. Quality is tingly. Severity is localized to feet. She denies specific modifying factors. PFSH Past Medical History Anxiety: Yes Cancer: Yes (BREAST, CERVICAL, VAGINAL) Cardiovascular Problems: No Chemotherapy: Yes Diabetes: No Endocrine: No Gastrointestinal Disorders: Yes GERD: Yes Genitourinary: No Hepatitis: No Hiatal Hernia: No Immune Disorder: No Musculoskeletal: No Neurologic: No Psychiatric: Yes (anxiety) Reproductive: No Respiratory: Yes (Asthma) Radiation Therapy: Yes Thyroid Disease: Yes (hypothyroid) ?: Not Tubal Ligation: Yes Past Surgical History Abdominal Surgery: Yes Hysterectomy: Yes Tonsillectomy: Yes Other Surgery: Yes (CHEST WALL RECONSTRUCTION, SINUS SURGERY) Social History Alcohol Use: No Tobacco Use: No Substance Use: No (PT DENIES) Allergies-Medications (Allergen,Severity, Reaction): Coded Allergies: No Known Allergies (Unverified Allergy, Unknown, 08/07/17) Reported Meds & Prescriptions Reported Meds & Active Scripts Active Reported Atorvastatin (Atorvastatin Calcium) 10 Mg Tab 10 Mg PO HS Oxycodone (Oxycodone HCl) 10 Mg Tab 10 Mg PO Q4H PRN Zoloft (Sertraline HCl) 50 Mg Tab 50 Mg PO DAILY Fosamax (Alendronate Sodium) 70 Mg Tab 70 Mg PO Q7D Levoxyl (Levothyroxine Sodium) 100 Mcg Tab 100 Mcg PO DAILY Review of Systems Except as stated in HPI: all other systems reviewed are Neg Physical Exam Narrative GENERAL: 52 y/o female in no apparent distress SKIN: Focused skin assessment warm/dry. HEAD: Atraumatic. Normocephalic. EYES: Pupils equal and round. No scleral icterus. No injection or drainage. ENT: No nasal bleeding or discharge. Mucous membranes pink and moist. NECK: Trachea midline. No JVD. CARDIOVASCULAR: Regular rate and rhythm. RESPIRATORY: No accessory muscle use. Clear to auscultation. Breath sounds equal bilaterally. GASTROINTESTINAL: Abdomen soft, non-tender, nondistended. MUSCULOSKELETAL: No obvious deformities. No clubbing. No cyanosis. No edema. NEUROLOGICAL: Awake and alert. No obvious cranial nerve deficits. Motor grossly within normal limits. Normal speech. Data Data Last Documented VS Vital Signs Date Time Temp Pulse Resp B/P (MAP) Pulse Ox O2 Delivery O2 Flow Rate FiO2 08/07/17 05:46 18 98 Room Air 08/07/17 05:20 97.2 103 139/68 (91) Orders Orders Complete Blood Count With Diff (08/07/17 05:32) Basic Metabolic Panel (Bmp) (08/07/17 05:32) Iv Access Insert/Monitor (08/07/17 05:32) Ecg Monitoring (08/07/17 05:32) Oximetry (08/07/17 05:32) Magnesium (Mg) (08/07/17 06:39) Potassium Chloride Eff (K-Lyte Cl Eff) (08/07/17 06:45) Admit Order (Ed Use Only) (08/07/17 06:43) Labs Laboratory Tests Test 08/07/17 05:46 White Blood Count 3.5 TH/MM3 Red Blood Count 2.62 MIL/MM3 Hemoglobin 8.6 GM/DL Hematocrit 23.0 % Mean Corpuscular Volume 87.9 FL Mean Corpuscular Hemoglobin 33.0 PG Mean Corpuscular Hemoglobin Concent 37.6 % Red Cell Distribution Width 13.6 % Platelet Count 96 TH/MM3 Mean Platelet Volume 7.2 FL Neutrophils (%) (Auto) 81.8 % Lymphocytes (%) (Auto) 10.0 % Monocytes (%) (Auto) 7.7 % Eosinophils (%) (Auto) 0.2 % Basophils (%) (Auto) 0.3 % Neutrophils # (Auto) 2.9 TH/MM3 Lymphocytes # (Auto) 0.3 TH/MM3 Monocytes # (Auto) 0.3 TH/MM3 Eosinophils # (Auto) 0.0 TH/MM3 Basophils # (Auto) 0.0 TH/MM3 CBC Comment AUTO DIFF Differential Comment AUTO DIFF CONFIRMED Platelet Estimate LOW Platelet Morphology Comment NORMAL Blood Urea Nitrogen 13 MG/DL Creatinine 1.41 MG/DL Random Glucose 154 MG/DL Calcium Level 7.5 MG/DL Sodium Level 134 MEQ/L Potassium Level 2.3 MEQ/L Chloride Level 95 MEQ/L Carbon Dioxide Level 28.1 MEQ/L Anion Gap 11 MEQ/L Estimat Glomerular Filtration Rate 39 ML/MIN Magnesium Level 1.2 MG/DL [facility] Medical Decision Making Medical Screen Exam Complete: Yes Emergency Medical Condition: Yes Medical Record Reviewed: Yes (pmh confirmed, labs reviewed) Interpretation(s) CBC & BMP Diagram 08/07/17 05:46 Calcium Level 7.5 #L Differential Diagnosis Electrolyte abnormality, chemo effect, neuropathy Narrative Course We will check lab work and reevaluate labs with critical values noted, potassium replacement started, magnesium added on, will admit for further care, patient updated Physician Communication Physician Communication dr ricketts states will follow, thinks anemia should not be that significant from chemo dr french agrees to admit Diagnosis Primary Impression: Hypokalemia Additional Impression: Anemia Qualified Codes: D64.9 - Anemia, unspecified Admitting Information Admitting Physician Requests: Admit Scripts Gabapentin (Gabapentin) 300 Mg Cap 300 MG PO HS for peripheral neuropathy, #30 CAP 0 Refills Prov: Neelima Foreman MD 08/09/17 Ondansetron (Zofran) 4 Mg Tab 4 MG PO Q6HR Y for NAUSEA OR VOMITING, #20 TAB 0 Refills Prov: Neelima Foreman MD 08/09/17 [oxyCODONE SR] 20 MG TABCR No Conflict Check 20 MG PO Q12HR for Pain Management, #20 TAB 0 Refills Prov: Neelima Foreman MD 08/09/17 Dolly Wiseman MD Aug 07, 2017 05:46
[2017-08-07 06:04] LABS: AUTOMATED NEUTROPHIL # 2.9 TH/MM3 (1.8-7.7); BASOPHIL % 0.3 % (0.0-2.0); EOSINOPHIL % 0.2 % (0.0-4.0); HEMOGLOBIN 8.6 GM/DL (11.6-15.3); LYMPHOCYTE # 0.3 TH/MM3 (1.0-4.8); MEAN CELL VOLUME 87.9 FL (80.0-100.0); MEAN PLATELET VOLUME 7.2 FL (7.0-11.0); MONO % 7.7 % (0.0-8.0); MONOCYTE # 0.3 TH/MM3 (0-0.9); NEUT % 81.8 % (16.0-70.0); PLATELET COUNT 96 TH/MM3 (150-450); RED BLOOD COUNT 2.62 MIL/MM3 (4.00-5.30); RED CELL DISTRIBUTION WIDTH 13.6 % (11.6-17.2); WHITE BLOOD COUNT 3.5 TH/MM3 (4.0-11.0)
[2017-08-07 06:08] LABS: MEAN CORPUSCULAR HGB CONC 37.6 % (32.0-36.0)
[2017-08-07 06:24] LABS: BICARBONATE 28.1 MEQ/L (21.0-32.0); CALCIUM 7.5 MG/DL (8.5-10.1); CREATININE 1.41 MG/DL (0.50-1.00)
[2017-08-07] MEDS ORDERED: POTASSIUM CHLORIDE 25 MEQ EFFERVESCENT TAB PO ONE ×3 (06:45→18:45)
[2017-08-07] MEDS ORDERED: LACTULOSE SYRUP 20 GM/30 ML CUP PO PRN (06:45)
[2017-08-07] MEDS ORDERED: BISACODYL 10 MG SUPP RECTAL PRN (06:45)
[2017-08-07] MEDS ORDERED: SODIUM CHLORIDE 0.9% FLUSH 10 ML FLUSH IV FLUSH PRN (06:45)
[2017-08-07] MEDS ORDERED: ACETAMINOPHEN 325 MG TAB PO PRN (06:45)
[2017-08-07] MEDS ORDERED: MAGNESIUM HYDROXIDE SUSP 30 ML CUP PO PRN (06:45)
[2017-08-07] MEDS ORDERED: SENNOSIDES 8.6 MG TAB PO PRN (06:45)
[2017-08-07] MEDS ORDERED: MORPHINE SULFATE 2 MG/ML INJ IV PUSH PRN (06:45)
[2017-08-07] MEDS ORDERED: ALENDRONATE SODIUM 70 MG TAB PO SCH (08:45)
[2017-08-07] MEDS ORDERED: GABAPENTIN 300 MG CAP PO ONE (08:45)
--- NOTE | 2017-08-07 08:51 | HHI.HP ---
[facility] Primary Care Physician Unknown Admission Diagnosis hypokalemia, anemia Diagnoses: Chief Complaint: Tingling of the bilateral calves and feet Travel History International Travel<30 Days: No Contact w/Intl Traveler <30 Da: No Traveled to Known Affected Are: No History of Present Illness This is a 52-year-old female with past medical history of breast and cervical cancer in remission who is now being treated for vaginal cancer with chemotherapy radiation on 01/16 cycles who is complaining of bilateral calf and feet tingling. Patient stated that she had chemotherapy at Dr. Aguilar office for 8 hours yesterday and then when she got home around 7 PM she started feeling abnormal sensation of the bilateral calf and feet described as tingling or is if her feet are trying to wake up. Patient very anxious to get out and wants to be treated quickly for this. She said that she feels nauseous but this does not prevent her from eating. Patient stated that she has always had a poor appetite. Denies any emesis. Denies any abdominal pain. Denied any fevers or chills. She denies any fecal or urinary incontinence. She also denies any lower extremity weakness. All other review of system reviewed and negative. Past Family Social History Past Medical History Hyperlipidemia Hypothyroidism Anxiety History of cervical breast cancer in remission. Currently being treated for vaginal cancer. Osteoporosis. Past Surgical History 23 surgeries for abdominal breast flap. Port placements. Total hysterectomy. Bilateral mastectomy. Reported Medications Reported Atorvastatin (Atorvastatin Calcium) 10 Mg Tab 10 Mg PO HS Oxycodone (Oxycodone HCl) 10 Mg Tab 10 Mg PO Q4H PRN Zoloft (Sertraline HCl) 50 Mg Tab 50 Mg PO DAILY Fosamax (Alendronate Sodium) 70 Mg Tab 70 Mg PO Q7D Levoxyl (Levothyroxine Sodium) 100 Mcg Tab 100 Mcg PO DAILY Allergies: Coded Allergies: No Known Allergies (Unverified Allergy, Unknown, 08/07/17) Active Ordered Medications Current Medications Potassium Bicarb/ Potassium Chloride (K-Lyte Cl Eff) 50 meq ONCE ONCE PO ; Start 08/07/17 at 06:45; Stop 08/07/17 at 06:46; Status DC Sodium Chloride 1,000 ml @ 100 mls/hr Q10H IV ; Start 08/07/17 at 06:43 Sodium Chloride (NS Flush) 2 ml UNSCH PRN IV FLUSH FLUSH AFTER USING IV ACCESS ; Start 08/07/17 at 06:45 Sodium Chloride (NS Flush) 2 ml BID IV FLUSH ; Start 08/07/17 at 09:00 Ondansetron HCl (Zofran Inj) 4 mg Q6H PRN IVP NAUSEA OR VOMITING; Start at 06:45 Acetaminophen (Tylenol) 650 mg Q6H PRN PO FEVER/PAIN SCALE 1 TO 2; Start at 06:45 Morphine Sulfate (Morphine Inj) 2 mg Q3H PRN IV PUSH Pain 6-10; Start 08/07/17 at 06:45 Oxycodone HCl (Roxicodone) 10 mg Q4H PRN PO PAIN SCALE 3 TO 5; Start 08/07/17 at 06:45 Senna/Docusate Sodium (Deb-Colace) 1 tab BID PO ; Start 08/07/17 at 09:00 Magnesium Hydroxide (Milk Of Magnesia Liq) 30 ml Q12H PRN PO Mild constipation ; Start 08/07/17 at 06:45 Sennosides (Senokot) 17.2 mg Q12H PRN PO Moderate constipation; Start 08/07/17 at 06:45 Bisacodyl (Dulcolax Supp) 10 mg DAILY PRN RECTAL SEVERE CONSITIPATION/ IF NPO ; Start 08/07/17 at 06:45 Lactulose (Lactulose Liq) 30 ml DAILY PRN PO SEVERE CONSITIPATION / IF PO; Start 08/07/17 at 06:45 Gabapentin (Neurontin) 300 mg ONCE ONCE PO ; Start 08/07/17 at 08:45; Stop at 08:46; Status UNV Family History Father mother has hypertension. Mother had history of breast cancer. Social History Occasionally smokes a couple cigarettes a day. She stated that this has not been long but cannot give me a timeline. Denies any alcohol or illicit drug use. Physical Exam Vital Signs Vital Signs Date Time Temp Pulse Resp B/P (MAP) Pulse Ox O2 Delivery O2 Flow Rate FiO2 08/07/17 05:46 18 98 Room Air 08/07/17 05:20 97.2 103 18 139/68 (91) 99 Physical Exam GENERAL: This is a well-nourished, well-developed patient, in no apparent distress. SKIN: No rashes, ecchymoses or lesions. Cool and dry. Port in place. Dry clean and intact. HEAD: Atraumatic. Normocephalic. No temporal or scalp tenderness. EYES: Pupils equal round and reactive. Extraocular motions intact. No scleral icterus. No injection or drainage. ENT: Nose without bleeding, purulent drainage or septal hematoma. Throat without erythema, tonsillar hypertrophy or exudate. Uvula midline. Airway patent. NECK: Trachea midline. No JVD or lymphadenopathy. Supple, nontender, no meningeal signs. CARDIOVASCULAR: Regular rate and rhythm without murmurs, gallops, or rubs. RESPIRATORY: Clear to auscultation. Breath sounds equal bilaterally. No wheezes , rales, or rhonchi. GASTROINTESTINAL: Abdomen soft, non-tender, nondistended. No hepato-splenomegaly , or palpable masses. No guarding. MUSCULOSKELETAL: Extremities without clubbing, cyanosis, or edema. No joint tenderness, effusion, or edema noted. No calf tenderness. Negative Homans sign bilaterally. NEUROLOGICAL: Awake and alert. Cranial nerves II through XII intact. Motor grossly within normal limits. Five out of 5 muscle strength in all muscle groups. Normal speech. Bilateral calves/feet positive tingling sensation with palpitation. Laboratory Laboratory Tests Test 08/07/17 05:46 White Blood Count 3.5 Red Blood Count 2.62 Hemoglobin 8.6 Hematocrit 23.0 Mean Corpuscular Volume 87.9 Mean Corpuscular Hemoglobin 33.0 Mean Corpuscular Hemoglobin Concent 37.6 Red Cell Distribution Width 13.6 Platelet Count 96 Mean Platelet Volume 7.2 Neutrophils (%) (Auto) 81.8 Lymphocytes (%) (Auto) 10.0 Monocytes (%) (Auto) 7.7 Eosinophils (%) (Auto) 0.2 Basophils (%) (Auto) 0.3 Neutrophils # (Auto) 2.9 Lymphocytes # (Auto) 0.3 Monocytes # (Auto) 0.3 Eosinophils # (Auto) 0.0 Basophils # (Auto) 0.0 CBC Comment AUTO DIFF Differential Comment AUTO DIFF CONFIRMED Platelet Estimate LOW Platelet Morphology Comment NORMAL Blood Urea Nitrogen 13 Creatinine 1.41 Random Glucose 154 Calcium Level 7.5 Sodium Level 134 Potassium Level 2.3 Chloride Level 95 Carbon Dioxide Level 28.1 Anion Gap 11 Estimat Glomerular Filtration Rate 39 Result Diagram: 08/07/1746 08/07/1746 Caprini VTE Risk Assessment Caprini VTE Risk Assessment: Mod/High Risk (score >= 2) Caprini Risk Assessment Model Point Value = 1 Point Value = 2 Point Value = 3 Point Value = 5 Age 41-60 Minor surgery BMI > 25 kg/m2 Swollen legs Varicose veins or History of unexplained or recurrent spontaneous Oral contraceptives or hormone replacement Sepsis (< 1 month) Serious lung disease, including pneumonia (< 1 month) Abnormal pulmonary function Acute myocardial infarction Congestive heart failure (< 1 month) History of inflammatory bowel disease Medical patient at bed rest Age 61-74 Arthroscopic surgery Major open surgery (> 45 min) Laparoscopic surgery (> 45 min) Malignancy Confined to bed (> 72 hours) Immobilizing plaster cast Central venous access Age >= 75 History of VTE Family history of VTE Factor V Leiden Prothrombin 13420T Lupus anticoagulant Anticardiolipin antibodies Elevated serum homocysteine Heparin-induced thrombocytopenia Other congenital or acquired thrombophilia Stroke (< 1 month) Elective arthroplasty Hip, pelvis, or leg fracture Acute spinal cord injury (< 1 month) Prophylaxis Regimen Total Risk Factor Score Risk Level Prophylaxis Regimen 0-1 Low Early ambulation 2 Moderate Order ONE of the following: *Sequential Compression Device (SCD) *Heparin 5000 units SQ BID 3-4 Higher Order ONE of the following medications: *Heparin 5000 units SQ TID *Enoxaparin/Lovenox 40 mg SQ daily (WT < 150 kg, CrCl > 30 mL/min) *Enoxaparin/Lovenox 30 mg SQ daily (WT < 150 kg, CrCl > 10-29 mL/min) *Enoxaparin/Lovenox 30 mg SQ BID (WT < 150 kg, CrCl > 30 mL/min) AND/OR *Sequential Compression Device (SCD) 5 or more Highest Order ONE of the following medications: *Heparin 5000 units SQ TID (Preferred with Epidurals) *Enoxaparin/Lovenox 40 mg SQ daily (WT < 150 kg, CrCl > 30 mL/min) *Enoxaparin/Lovenox 30 mg SQ daily (WT < 150 kg, CrCl > 10-29 mL/min) *Enoxaparin/Lovenox 30 mg SQ BID (WT < 150 kg, CrCl > 30 mL/min) AND *Sequential Compression Device (SCD) Assessment and Plan Assessment and Plan This is a 52-year-old female currently being treated for vaginal cancer with chemotherapy radiation on 01/16 who presented with abrupt onset peripheral neuropathy right after chemotherapy Peripheral neuropathy, abrupt onset -May be secondary to chemotherapy versus hypokalemia. -Magnesium was ordered pending results. Potassium is 2.3 with no other symptoms. -Patient already order 50 mEq of potassium. Will recheck potassium at 10 am. If magnesium is low we will replenish. -We will give patient a dose of Neurontin to see if this helps with symptoms. -Continue to monitor. She may need a EMG as outpatient. Renal insufficiency -Most likely secondary to dehydration. Creatinine trending up from normal a couple weeks ago to 1.41. -We will give patient IV fluids. Strict ins and out. Monitor creatinine. Avoid nephrotoxins. Avoid NSAIDs and contrast. Anemia -Hemoglobin 2 days ago was 12.6 now 8.5. No signs of any GI bleed or source. -Continue to monitor clinically. Patient does have a escort service attendant/oncologist. If there is no active bleeding can be worked up as outpatient. May be secondary to chemotherapy. Will recheck hemoglobin to make sure that this is a true value. -Oncologist was consulted. Hypothyroidism/osteoporosis/anxiety/hyperlipidemia -Continue with home medication DVT prophylaxis -Encourage ambulation. At the moment will avoid chemoprophylaxis since hemoglobin dropped drastically. Code Status Discussed CODE STATUS with patient she stated that she is a DNR. Discussed Condition With patient Neelima Foreman MD Aug 07, 2017 08:51
[2017-08-07] MEDS ORDERED: HEPARIN SODIUM - SQ 10,000 UNITS/ML VIAL SQ SCH (09:00)
[2017-08-07] MEDS: DOCUSATE SODIUM 50 MG/SENNA 8.6 MG TAB PO SCH ×2 (09:00→20:07)
[2017-08-07] MEDS: SODIUM CHLOR 0.9% 1000 ML INJ 1,000 ML IV SCH ×2 (09:01→21:56)
[2017-08-07] MEDS: SODIUM CHLORIDE 0.9% FLUSH 10 ML FLUSH IV FLUSH SCH ×2 (09:02→20:07)
[2017-08-07] MEDS: LEVOTHYROXINE SODIUM 100 MCG TAB PO SCH (09:16)
[2017-08-07] MEDS: SERTRALINE HCL 50 MG TAB PO SCH (10:37)
[2017-08-07] MEDS ORDERED: MAGNESIUM SULFATE 4 GM PREMIX 100 ML IV ONE (11:30)
[2017-08-07] MEDS ORDERED: MAGNESIUM SULFATE 1 GM PREMIX 100 ML IV SCH ×2 (12:00→19:45)
[2017-08-07 13:03] LABS: MAGNESIUM 1.2 MG/DL (1.5-2.5)
[2017-08-07 14:15] LABS: % SATURATION IRON PROFILE 44.5 % (20-50); IRON (FE) 96 MCG/DL (50-170); TOTAL IRON BINDING CAPACITY 216 MCG/DL (250-450)
[2017-08-07 14:40] LABS: FERRITIN 219 NG/ML (8-252); FOLATE 16.1 NG/ML (3.1-17.5)
[2017-08-07] MEDS: MAGNESIUM SULFAT 1 GM PREMIX 100 ML x2 bags IV SCH ×4 (14:45→20:05)
[2017-08-07] MEDS ORDERED: POTASSIUM CHLOR 10 MEQ PREMIX 100 ML IV ONE (15:00)
--- NOTE | 2017-08-07 15:11 | MB ---
cc: Keon Cruz MD DATE OF CONSULT: 08/07/2017 REASON FOR CONSULTATION: Patient with critical drop in worsening anemia and electrolyte derangement, specifically hypomagnesemia and hypokalemia. ACTIVE ONCOLOGIC DIAGNOSIS: Squamous cell carcinoma of the vulva/vagina. She is currently on radiation with weekly dosing of chemotherapy; she has received 4 weekly doses of cisplatin and last week she received carboplatin due to difficulty tolerating cisplatin due to electrolyte imbalances and electrolyte derangement. PREVIOUS ONCOLOGIST DIAGNOSES: 1. Cervical carcinoma diagnosed in 1995, she is status post hysterectomy and TIGIST and BSO. This was performed at the [facility] in [place]. She did not require radiation or chemotherapy at that time. 2. 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 This was treated with left breast mastectomy, axillary lymph node dissection, along with sentinel lymph node biopsy. She then received Adriamycin and Cytoxan, followed by Taxol for a total of 8 cycles. She then received radiation. She was not a candidate for adjuvant endocrine therapy given triple negative status. The patient tells me she had 5 out of 7 lymph nodes involved with metastatic breast cancer at that time. CHIEF COMPLAINT: Ms. Hagen reports multiple complaints, mostly pertaining to weakness, fatigue, diarrhea, leg weakness, leg tingling and blood tinged vaginal discharge. I would like to mention, it is somewhat difficult obtaining a history from this patient because she has a very tangential thought process, she goes from talking about her cancer treatment to talking about her Will and her attorneys to her previous life and marriages. It is very hard to get a coherent history, therefore I have had to rely very heavily on the past medical history, our clinic outpatient oncology notes and other ux consultant notes. HISTORY OF PRESENT ILLNESS: Ms. Hagen is a 52-year-old female. She is originally from the [place], [place] area. She lived and worked in [facility] for most of her life. 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 She is and had been living at home alone in [facility]. She has 1 son of her own and 1 stepdaughter. Ms. Hagen was diagnosed last fall with a squamous cell carcinoma, which arose from the vulva. The tumor was in the periurethral area. The tumor was locally advanced and nonresectable. She underwent a thorough examination by Dr. Nirali Aguilar as well as staging studies which included MRI of the pelvis. She was recommended concurrent chemoradiotherapy to a definitive dose followed by possible surgical resection. Treatment was initiated in early July and initial therapy consisted of weekly doses of cisplatin which were delivered between 07/09 and 07/30 (4 weekly doses). She did develop progressive hypomagnesemia and electrolyte disturbances, as well as ringing in the ears. She was therefore transitioned to weekly carboplatin as of 08/06/2017. The patient underwent a CBC on 08/05/2017 at our clinic, she was noted to have a hemoglobin of 12.5 grams per deciliter at that time with a hematocrit of 33.7% and a platelet count of 136,000. Repeat blood work performed on 08/07/[address] [facility] emergency department revealed a dramatic decrease in her hemoglobin, down from 12.5 to 8.6 grams per deciliter (delta of 4 grams per deciliter) and a 10 percentage point decrease in her hematocrit. Her platelet counts also dropped down from 136,000 to 96,000. The oncology/hematology service has been asked to see her for further workup and management. Additional laboratory abnormalities include hyponatremia, severe hypokalemia, and acute on chronic renal insufficiency. PAST MEDICAL HISTORY: 1. Squamous cell carcinoma of the vulva/periurethral area. 2. Previous history of squamous cell carcinoma of the cervix. 3. Previous history of ductal carcinoma of the left breast. 4. Fibromyalgia. 5. Asthma. 6. Anxiety. 7. Osteoporosis. 8. Peptic ulcer disease. 9. Peripheral neuropathy. PAST SURGICAL HISTORY: 1. Hysterectomy, mastectomy on the left side, ovarian tumor removal. 2. Plastic surgery including tummy tuck. 3. Tubal ligation. 4. Vulvar biopsies. GYNECOLOGIC HISTORY: 2, para 1; 1 interrupted . She is postmenopausal. FAMILY HISTORY: Mother is alive, she had breast cancer status post lumpectomy. Father is alive, he has CLL. No other oncologist diagnoses. 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 She is a current smoker, smoking about a half a pack a day, she has smoked for the 25-30 years. ALLERGIES: NO KNOWN DRUG ALLERGIES. CURRENT INPATIENT MEDICATIONS: 1. Normal saline 100 mL per hour. 2. Tylenol 650 mg p.o. q.6 hours. 3. Atorvastatin 10 mg p.o. at bedtime. 4. Dulcolax 10 mg per rectum for severe constipation. 5. Senna Colace 1 tablet p.o. b.i.d. 6. Gabapentin 300 mg p.o. x 1. 7. Lactulose 30 mL p.o. daily. 8. Levothyroxine 100 mcg p.o. daily. 9. Magnesium hydroxide/Milk of Magnesia 30 mL p.o. q.12 hours as needed for mild constipation. 10. Morphine sulfate 2 mg IV q.3 hours as needed for pain. 11. Zofran 4 mg IV q.6 hours as needed for nausea and vomiting. 12. Oxycodone 10 mg p.o. q.4 hours as needed for pain. 13. Sertraline 50 mg p.o. daily. REVIEW OF SYSTEMS: A 13-point review of systems are obtained. The following are the pertinent positives and negative: CONSTITUTIONAL: Patient report fatigue and weakness, nausea. She reports feeling feverish, but denies fevers. She denies night sweats. She reports loss of weight HEENT: Denies headaches, blurry vision, difficulty swallowing or soreness in the throat. RESPIRATORY: Denies difficulty breathing, cough, hemoptysis, pleuritic chest pain. CARDIOVASCULAR: Denies angina-like chest pain, PND, orthopnea. GASTROINTESTINAL: She does report having some diarrhea. GENITOURINARY: She reports burning with the urine. She does report some blood tinged vaginal discharge but she describes it more as a smear as opposed to blood flow. She reports it is only blood tinged when she wipes. CENTRAL NERVOUS SYSTEMS: Denies any focal or sensory motor deficits. MUSCULOSKELETAL: Denies any focal aches or pains other than the vulvovaginal area where she is receiving radiation. PHYSICAL EXAMINATION: VITAL SIGNS: Temperature 98.2 degree Fahrenheit, heart rate 81 beats per minute, respiratory rate 18, blood pressure 108/59, O2 sats are 99% on room air. GENERAL PHYSICAL APPEARANCE: Ms. Hagen is a middle aged female, she is laying in bed in the emergency department. She appears to be in no acute distress, she speaks in full sentences. She has a candid and pleasant demeanor. HEENT: Head is atraumatic, normocephalic. Conjunctivae are mildly pale, sclerae are anicteric, EOMI, PERRLA. Oral exam: No pharyngeal erythema. NECK: No palpable cervical, supraclavicular lymphadenopathy. RESPIRATORY: On posterior exam she has good air movement bilaterally without any added breath sounds. CARDIOVASCULAR: Regular rate and rhythm, S1 and S2, no obvious murmurs, rubs, or gallops. ABDOMEN: Protuberant belly, soft, no obvious tenderness, no obvious masses noted, no palpable hepatosplenomegaly. LOWER EXTREMITIES: No pretibial edema, no calf tenderness. BREASTS: Examination was performed because a female nurse video player mechanic was not present; however, it was evident that she had had major breast reconstruction on the left side. CENTRAL NERVOUS SYSTEMS: No focal sensory or motor deficits. LABORATORY FINDINGS: Blood work date 08/07/2017: WBC count 3.5, hemoglobin 8.6 grams per deciliter, hematocrit 23%, platelet count 96, absolute neutrophil count is 2.9. Chemistries: Sodium 134, potassium 3.3, chloride 95, bicarb 28, BUN 13, creatinine is 1.41, EGFR 39 mL per minute, random glucose 154, calcium 7.5, magnesium is 1.2. ASSESSMENT: Ms. Hagen is 52-year-old female with a diagnosis of squamous cell carcinoma of the periurethral area, this assessed to be a vulvar squamous cell carcinoma. She is currently on treatment with concurrent chemoradiotherapy and has received between 07/09 and 08/06, 4 total doses of weekly cisplatin dosed at 40 mg per meter squared and 1 dose of weekly carboplatin which was delivered on 08/06/2017. This was dosed to an AUC of 2. The patient has had progressive renal insufficiency and hypomagnesemia. These are likely related to renal toxicity and magnesium dumping related to cisplatin therapy. She has been receiving concurrent radiation as well. Ms. Hagen presents to this facility with complaints of progressive weakness, fatigue, tingling and numbness of the feet and legs and diarrhea. She denies noting overt blood loss other than blood tinged discharge from the vulvovaginal area, which she describes as scant. Blood work performed at this facility reveals a hemoglobin of 8.6 grams per deciliter, which is an approximate 4 gram drop from blood work done just 48 hours ago. Additionally, she is noted to have worsening renal function and significant hypomagnesemia and hypokalemia. The patient has been admitted to this hospital for further workup and management of the anemia and hydration as well as electrolyte replacement. RECOMMENDATIONS: 1. Squamous cell carcinoma of the vulva: She is currently on radiation chemotherapy which is designed to be to a definitive dose, subsequent management including possible surgical resection will be determined after therapy is completed and maximal response to present treatment has been assessed. 2. Anemia: I will request repeat CBC if this has not already been done, I am unable to explain the significant drop in hemoglobin and hematocrit over the past 48 hours, especially given her lack of symptoms of overt bleeding. A 3.5 to 4 gram per deciliter drop in hemoglobin should translate into about 3 or maybe even 4 units of blood in the average size person. 3. Obtain stool for occult blood testing to rule out heme positive stools and the GI tract as a possible source of bleeding. 4. Hypomagnesemia: Replace magnesium and potassium. Recommend hydration with normal saline. MD JESSICA Barragan/MARYANN , 11:31 AM , 03:10 PM
[2017-08-07] MEDS: ATORVASTATIN 10 MG TAB PO SCH (20:06)
[2017-08-07 20:14] LABS: MAGNESIUM 1.9 MG/DL (1.5-2.5)
[2017-08-08] VITALS (23 sets, daily range): BP systolic 101–137; BP diastolic 64–72; PULSE 72–94; RESP 16–18; TEMP 97.8–98.5; O2SAT 97–99
[2017-08-08 05:51] LABS: AUTOMATED NEUTROPHIL # 1.8 TH/MM3 (1.8-7.7); BASOPHIL % 0.2 % (0.0-2.0); EOSINOPHIL # 0.1 TH/MM3 (0-0.4); EOSINOPHIL % 3.5 % (0.0-4.0); HEMATOCRIT 21.6 % (35.0-46.0); LYMPH % 18.6 % (9.0-44.0); LYMPHOCYTE # 0.5 TH/MM3 (1.0-4.8); MEAN CELL VOLUME 88.8 FL (80.0-100.0); MEAN CORPUSCULAR HEMOGLOBIN 32.9 PG (27.0-34.0); MEAN PLATELET VOLUME 7.5 FL (7.0-11.0); MONO % 7.7 % (0.0-8.0); MONOCYTE # 0.2 TH/MM3 (0-0.9); PLATELET COUNT 77 TH/MM3 (150-450); RED BLOOD COUNT 2.43 MIL/MM3 (4.00-5.30); RED CELL DISTRIBUTION WIDTH 13.8 % (11.6-17.2); WHITE BLOOD COUNT 2.6 TH/MM3 (4.0-11.0)
[2017-08-08 06:29] LABS: ALBUMIN 2.7 GM/DL (3.4-5.0); BICARBONATE 29.8 MEQ/L (21.0-32.0); CALCIUM 7.3 MG/DL (8.5-10.1); CALCIUM-PROTEIN CORRECTED 8.2 MG/DL (8.5-10.1); CREATININE 1.49 MG/DL (0.50-1.00); TOTAL BILIRUBIN ADULT 0.2 MG/DL (0.2-1.0); TOTAL PROTEIN 5.4 GM/DL (6.4-8.2)
[2017-08-08] MEDS ORDERED: POTASSIUM CHLORIDE 20 MEQ CONTROLLED RELEASE TAB PO ONE (06:45)
[2017-08-08] MEDS ORDERED: OMEP20CA2 PO (06:58)
[2017-08-08] MEDS ORDERED: GABA800T PO (06:59)
[2017-08-08] MEDS: POTASSIUM CHLOR 20 MEQ PREMIX 100 ML IV SCH ×2 (06:59→08:09)
[2017-08-08 07:20] LABS: MAGNESIUM 1.9 MG/DL (1.5-2.5)
[2017-08-08] MEDS: LEVOTHYROXINE SODIUM 100 MCG TAB PO SCH (08:09)
[2017-08-08 08:50] LABS: RETIC # 41.9 MIL/L (20.0-150.0); RETIC % 1.7 % (0.4-3.0)
[2017-08-08] MEDS: DOCUSATE SODIUM 50 MG/SENNA 8.6 MG TAB PO SCH ×2 (08:51→20:11)
[2017-08-08] MEDS: ONDANSETRON HCL 4 MG/2 ML VIAL IVP PRN ×3 (08:51→21:38)
[2017-08-08] MEDS: SERTRALINE HCL 50 MG TAB PO SCH (08:51)
[2017-08-08] MEDS: SODIUM CHLORIDE 0.9% FLUSH 10 ML FLUSH IV FLUSH SCH ×2 (09:00→20:12)
[2017-08-08] MEDS: PANTOPRAZOLE SOD 20 MG DELAYED RELEASE TAB PO SCH (11:21)
[2017-08-08] MEDS ORDERED: HYDROmorphone HCL PF 2 MG/ML VIAL IV PUSH ONE (12:00)
--- NOTE | 2017-08-08 12:00 | PD.ONC.PN ---
Subjective Subjective Remarks Afebrile Patient reports she has intense pain in her legs from neuropathy Asking for gabapentin to be restarted Asking for an increase in her oxycodone Denies bleeding Objective Data Date Time Temp Pulse Resp B/P (MAP) Pulse Ox O2 Delivery O2 Flow Rate FiO2 08/08/17 11:17 98.1 73 18 128/64 (85) 97 08/08/17 10:00 76 08/08/17 09:00 80 08/08/17 08:12 97.8 77 18 101/67 (78) 98 08/08/17 08:00 74 08/08/17 07:00 75 08/08/17 04:13 98.4 72 16 125/71 (89) 98 08/08/17 00:27 97.8 77 16 117/70 (86) 99 08/08/17 00:19 74 08/07/17 23:06 74 08/07/17 19:58 98.1 76 18 134/73 (93) 98 08/07/17 18:16 97.1 79 18 117/69 (85) 92 08/07/17 18:05 08/07/17 18:01 87 16 128/73 (91) 99 Room Air 08/07/17 14:47 81 16 108/59 (75) 99 Room Air Result Diagram: 08/08/17 0400 08/08/17 0400 Laboratory Results Laboratory Tests Test 08/07/17 19:31 08/08/17 04:00 Potassium Level 3.0 MEQ/L 2.7 MEQ/L Magnesium Level 1.9 MG/DL 1.9 MG/DL White Blood Count 2.6 TH/MM3 Red Blood Count 2.43 MIL/MM3 Hemoglobin 8.0 GM/DL Hematocrit 21.6 % Mean Corpuscular Volume 88.8 FL Mean Corpuscular Hemoglobin 32.9 PG Mean Corpuscular Hemoglobin Concent 37.0 % Red Cell Distribution Width 13.8 % Platelet Count 77 TH/MM3 Mean Platelet Volume 7.5 FL Neutrophils (%) (Auto) 70.0 % Lymphocytes (%) (Auto) 18.6 % Monocytes (%) (Auto) 7.7 % Eosinophils (%) (Auto) 3.5 % Basophils (%) (Auto) 0.2 % Neutrophils # (Auto) 1.8 TH/MM3 Lymphocytes # (Auto) 0.5 TH/MM3 Monocytes # (Auto) 0.2 TH/MM3 Eosinophils # (Auto) 0.1 TH/MM3 Basophils # (Auto) 0.0 TH/MM3 CBC Comment AUTO DIFF Differential Comment AUTO DIFF CONFIRMED Platelet Estimate LOW Platelet Morphology Comment NORMAL Basophilic Stippling FAINT Reticulocyte Count 1.7 % Absolute Reticulocyte Count 41.9 MIL/L Blood Urea Nitrogen 15 MG/DL Creatinine 1.49 MG/DL Random Glucose 115 MG/DL Total Protein 5.4 GM/DL Albumin 2.7 GM/DL Calcium Level 7.3 MG/DL Alkaline Phosphatase 58 U/L Aspartate Amino Transf (AST/SGOT) 16 U/L Alanine Aminotransferase (ALT/SGPT) 18 U/L Total Bilirubin 0.2 MG/DL Sodium Level 134 MEQ/L Chloride Level 97 MEQ/L Carbon Dioxide Level 29.8 MEQ/L Anion Gap 7 MEQ/L Estimat Glomerular Filtration Rate 36 ML/MIN Protein Corrected Calcium 8.2 MG/DL Administered Medications Medications (Trade) Dose Ordered Sig/Woo Route PRN Reason Start Time Stop Time Status Last Admin Dose Admin Sodium Chloride (NS Flush) 2 ml BID IV FLUSH 08/07/17 09:00 08/07/17 20:07 Ondansetron HCl (Zofran Inj) 4 mg Q6H PRN IVP NAUSEA OR VOMITING 08/07/17 06:45 08/08/17 08:51 Oxycodone HCl (Roxicodone) 10 mg Q4H PRN PO PAIN SCALE 3 TO 5 08/07/17 06:45 08/08/17 08:51 Senna/Docusate Sodium (Deb-Colace) 1 tab BID PO 08/07/17 09:00 08/08/17 08:51 Atorvastatin Calcium (Lipitor) 10 mg HS PO 08/07/17 21:00 08/07/17 20:06 Levothyroxine Sodium (Synthroid) 100 mcg DAILY PO 08/07/17 09:00 08/08/17 08:09 Sertraline HCl (Zoloft) 50 mg DAILY PO 08/07/17 09:00 08/08/17 08:51 Pantoprazole Sodium (Protonix) 20 mg DAILY PO 08/08/17 10:30 08/08/17 11:21 Objective Remarks GENERAL: Older female sitting upright in bed in no obvious distress SKIN: Warm and dry. HEAD: Normocephalic. EYES: No injection or drainage. NECK: Supple, trachea midline. No JVD or lymphadenopathy. CARDIOVASCULAR: Regular rate and rhythm without murmurs. RESPIRATORY: Clear anteriorly. Breathing unlabored at rest. GASTROINTESTINAL: Abdomen soft, non-tender, nondistended. EXTREMITIES: No cyanosis, or edema. NEUROLOGICAL: No obvious focal deficit. Awake, alert, and oriented x3. Assessment/Plan Problem List: (1) Vulvar cancer, carcinoma ICD Codes: C51.9 - Malignant neoplasm of vulva, unspecified Plan: --Future chemotherapy will be planned outpatient Hx/Workup: Patient was originally diagnosed with cervical carcinoma in 1995 and had a hysterectomy with bilateral salpingo-oophorectomy at that time she did not require any chemo or radiation. She was also diagnosed in 2008 with a stage IIb triple negative invasive ductal carcinoma of the left breast. She had a left mastectomy followed by ACT chemotherapy for 8 cycles. Patient also has a diagnosis of squamous cell carcinoma of the vulva/vagina. She is currently undergoing weekly chemotherapy with radiation. She was previously getting cisplatin but recently switched to carboplatin due to electrolyte imbalances. (2) Anemia ICD Codes: D64.9 - Anemia, unspecified Status: Acute Plan: -- Hemoglobin was noted to be 12.5 on 08/05. -- Upon arrival to the ER her hemoglobin was 8.6 on 08/07. -- Patient denies any bleeding. Assessment 52-year-old female with history of vulvar cancer presents to the emergency room for pain in her feet however it was noted that she had a significant drop in hemoglobin from 2 days prior and she was admitted Plan 1. Await stool for Hemoccult 2. Monitor for bleeding 3. Monitor CBC Attending Statement The exam, history, and the medical decision-making described in the above note were completed with the assistance of the mid-level provider. I reviewed and agree with the findings presented. I attest that I had a [id number] encounter with the patient on the same day, and personally performed and documented my assessment and findings in the medical record. Patient seen and examined, vital signs, labs and medications reviewed. Subjectively; she reports feeling well, she tells me she is eating well and reports her pain is also improved. She tells me she is constipated. She denies overt bleeding. She denies difficulty breathing. Currently on electrolyte replacement therapy for severe hypokalemia. Hemoglobin and hematocrit are stable at this time. Problem Qualifiers (1) Anemia: Qualified Codes: D64.9 - Anemia, unspecified Meghan Lee Aug 08, 2017 12:00 Keon Cruz MD Aug 08, 2017 17:04
[2017-08-08] MEDS: GABAPENTIN 400 MG CAP PO SCH ×2 (12:08→17:45)
[2017-08-08] MEDS ORDERED: hydrOXYzine HCL 10 MG TAB PO ONE (13:00)
[2017-08-08] MEDS ORDERED: NICOTINE 14 MG/24 HR PATCH T-DERMAL ONE (18:00)
[2017-08-08] MEDS: ATORVASTATIN 10 MG TAB PO SCH (20:11)
[2017-08-08] MEDS: oxyCODONE HCL 20 MG CONTROLLED RELEASE TAB PO SCH (20:12)
[2017-08-08] MEDS ORDERED: SODIUM CHLORID 0.9% 500 ML INJ 500 ML IV ONE (22:45)
--- NOTE | 2017-08-08 22:46 | HHI.PR ---
Subjective Remarks Patient seen this morning. She reports peripheral neuropathy pain continues. Requests restarting gabapentin Objective Vital Signs Date Time Temp Pulse Resp B/P (MAP) Pulse Ox O2 Delivery O2 Flow Rate FiO2 08/08/17 20:17 98.5 90 18 129/64 (85) 97 08/08/17 17:06 80 08/08/17 16:00 81 08/08/17 15:25 98.0 83 18 137/72 (93) 97 08/08/17 15:00 94 08/08/17 14:00 80 08/08/17 13:00 76 08/08/17 12:00 74 08/08/17 11:17 98.1 73 18 128/64 (85) 97 08/08/17 11:00 77 08/08/17 10:00 76 08/08/17 09:00 80 08/08/17 08:12 97.8 77 18 101/67 (78) 98 08/08/17 08:00 74 08/08/17 07:00 75 08/08/17 04:13 98.4 72 16 125/71 (89) 98 08/08/17 00:27 97.8 77 16 117/70 (86) 99 08/08/17 00:19 74 08/07/17 23:06 74 I/O 08/07/17 08/07/17 08/07/17 08/08/17 08/08/17 08/08/17 07:00 15:00 23:00 07:00 15:00 23:00 Intake Total 1300 ml 1100 ml 1920 ml Balance 1300 ml 1100 ml 1920 ml Intake Oral 1920 ml IV Total 1300 ml 1100 ml # Voids 6 Result Diagram: 08/08/17 0400 08/08/17 1224 Objective Remarks GENERAL: patient lying in bed. Appears comfortable. Alert and oriented 4. SKIN: Warm and dry. HEAD: Normocephalic. EYES: No scleral icterus. No injection or drainage. NECK: Supple, trachea midline. No JVD. CARDIOVASCULAR: Regular rate and rhythm without murmurs, gallops, or rubs. RESPIRATORY: Breath sounds equal bilaterally. No accessory muscle use. GASTROINTESTINAL: Abdomen soft, non-tender, nondistended. MUSCULOSKELETAL: No cyanosis, or edema. BACK: Nontender without obvious deformity. No CVA tenderness. A/P Assessment and Plan This is a 52-year-old female currently being treated for vaginal cancer with chemotherapy radiation on 01/16 who presented with abrupt onset peripheral neuropathy right after chemotherapy Peripheral neuropathy, abrupt onset -May be secondary to chemotherapy versus hypokalemia. -Magnesium was ordered pending results. Potassium is 2.3 with no other symptoms. -Patient already order 50 mEq of potassium. Will recheck potassium at 10 am. If magnesium is low we will replenish. -We will give patient a dose of Neurontin to see if this helps with symptoms. -Continue to monitor. She may need a EMG as outpatient. = 07/11. Restart gabapentin. //Hypokalemia. 2.7 this morning. Improved to 3.7. Continue to monitor. Renal insufficiency -Most likely secondary to dehydration. Creatinine trending up from normal a couple weeks ago to 1.41. -We will give patient IV fluids. Strict ins and out. Monitor creatinine. Avoid nephrotoxins. Avoid NSAIDs and contrast. Creatinine stable. Continue to monitor. Anemia -Hemoglobin 2 days ago was 12.6 now 8.5. No signs of any GI bleed or source. -Continue to monitor clinically. 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 If there is no active bleeding can be worked up as outpatient. May be secondary to chemotherapy. Will recheck hemoglobin to make sure that this is a true value. -Oncologist was consulted. = Hemoglobin continues 8.0. Overall stable. No signs of bleeding. Likely secondary to chemotherapy. Hematology following. Appreciate assistance. Hypothyroidism/osteoporosis/anxiety/hyperlipidemia -Continue with home medication DVT prophylaxis -Encourage ambulation. At the moment will avoid chemoprophylaxis since hemoglobin dropped drastically. Code Status Discussed CODE STATUS with patient she stated that she is a DNR. Discharge Planning when cleared by oncology. Praveen Pavon MD Aug 08, 2017 22:46
[2017-08-09] VITALS (23 sets, daily range): BP systolic 130–150; BP diastolic 63–87; PULSE 82–102; RESP 18; TEMP 97.4–98.6; O2SAT 97–100
[2017-08-09] MEDS: ONDANSETRON HCL 4 MG/2 ML VIAL IVP PRN ×3 (03:24→16:34)
[2017-08-09 04:55] LABS: AUTOMATED NEUTROPHIL # 1.7 TH/MM3 (1.8-7.7); BASOPHIL % 0.3 % (0.0-2.0); EOSINOPHIL # 0.1 TH/MM3 (0-0.4); EOSINOPHIL % 3.2 % (0.0-4.0); HEMATOCRIT 22.5 % (35.0-46.0); HEMOGLOBIN 8.2 GM/DL (11.6-15.3); LYMPH % 13.9 % (9.0-44.0); LYMPHOCYTE # 0.3 TH/MM3 (1.0-4.8); MEAN CELL VOLUME 89.9 FL (80.0-100.0); MEAN CORPUSCULAR HEMOGLOBIN 32.8 PG (27.0-34.0); MEAN PLATELET VOLUME 6.9 FL (7.0-11.0); MONO % 8.7 % (0.0-8.0); MONOCYTE # 0.2 TH/MM3 (0-0.9); NEUT % 73.9 % (16.0-70.0); PLATELET COUNT 87 TH/MM3 (150-450); RED CELL DISTRIBUTION WIDTH 13.8 % (11.6-17.2); WHITE BLOOD COUNT 2.3 TH/MM3 (4.0-11.0)
[2017-08-09 04:59] LABS: MEAN CORPUSCULAR HGB CONC 36.5 % (32.0-36.0)
[2017-08-09 05:24] LABS: ALBUMIN 2.7 GM/DL (3.4-5.0); AST (GOT) 14 U/L (15-37); BICARBONATE 30.6 MEQ/L (21.0-32.0); BLOOD UREA NITROGEN 13 MG/DL (7-18); CALCIUM 8.1 MG/DL (8.5-10.1); CHLORIDE 98 MEQ/L (98-107); CREATININE 1.74 MG/DL (0.50-1.00); GLOMERULAR FILTRATION RATE 30 ML/MIN (>89); GLUCOSE,RANDOM 109 MG/DL (74-106); SODIUM (NA) 135 MEQ/L (136-145)
[2017-08-09 05:27] LABS: ALKALINE PHOSPHATASE 68 U/L (45-117); ALT (GPT) 18 U/L (10-53); TOTAL BILIRUBIN ADULT 0.2 MG/DL (0.2-1.0); TOTAL PROTEIN 5.5 GM/DL (6.4-8.2)
[2017-08-09 08:11] LABS: OVALOCYTES 1+ (NORMAL)
[2017-08-09] MEDS ORDERED: REMOVE OLD PATCH T-DERMAL SCH (09:00)
[2017-08-09] MEDS ORDERED: NICOTINE 14 MG/24 HR PATCH T-DERMAL SCH (09:00)
--- NOTE | 2017-08-09 09:05 | PD.CONS ---
History of Present Illness Service [facility] Consult Requested By Dr. Wiseman Reason for Consult anemia currently being treated for vulvar cancer elevated creat electrolyte imbalance Primary Care Physician Unknown Diagnoses: (1) Vulvar cancer, carcinoma (2) Hypokalemia (3) Anemia History of Present Illness This is a 52 year old female known to [facility] for vulvar cancer. She is currently being treated with radiation along with weekly IV chemotherapy. She was on IV Cisplatin until her creatinine elevated to 1.2 this past week then she was changed to Carboplatin. Her last dose of Carboplatin was 08/06/17. She presented to [facility] with complaints of neuropathy feet and legs. This is a chronic problem for her resulting from prior IV chemotherapy in treatment for PMH of triple negative breast cancer. She was found to have CHRISS, anemia, low potassium and mag. She has shown no signs of active bleeding. She states she has had some nausea but been eating. She states she did not sleep last night and feels ready to go to rehab (?) or discharged home. She is a poor historian. She has had electrolyte replacement and her anemia has remained stable. Her creat is still elevated despite hydration. 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 Fibromyalgia. Asthma. Anxiety. Osteoporosis. Peptic ulcer disease. Peripheral neuropathy. 2, para 1 Past Surgical History PAST SURGICAL HISTORY: 1. Hysterectomy, mastectomy on the left side, ovarian tumor removal. 2. Plastic surgery including tummy tuck. 3. Tubal ligation. 4. Vulvar biopsies. total hysterectomy Reported Medications per EMR Active Ordered Medications Current Medications Potassium Bicarb/ Potassium Chloride (K-Lyte Cl Eff) 50 meq ONCE ONCE PO Last administered on 08/07/17at 09:01; Start 08/07/17 at 06:45; Stop 08/07/17 at 06: 46; Status DC Sodium Chloride 1,000 ml @ 100 mls/hr Q10H IV Last administered on 08/07/17at 21 :56; Start 08/07/17 at 06:43; Stop 08/08/17 at 10:27; Status DC Sodium Chloride (NS Flush) 2 ml UNSCH PRN IV FLUSH FLUSH AFTER USING IV ACCESS ; Start 08/07/17 at 06:45 Sodium Chloride (NS Flush) 2 ml BID IV FLUSH Last administered on 08/08/17at 20: 12; Start 08/07/17 at 09:00 Ondansetron HCl (Zofran Inj) 4 mg Q6H PRN IVP NAUSEA OR VOMITING Last administered on 08/09/17at 03:24; Start 08/07/17 at 06:45 Acetaminophen (Tylenol) 650 mg Q6H PRN PO FEVER/PAIN SCALE 1 TO 2; Start at 06:45 Morphine Sulfate (Morphine Inj) 2 mg Q3H PRN IV PUSH Pain 6-10; Start 08/07/17 at 06:45 Oxycodone HCl (Roxicodone) 10 mg Q4H PRN PO PAIN SCALE 3 TO 5 Last administered on 08/09/17at 05:44; Start 08/07/17 at 06:45 Senna/Docusate Sodium (Deb-Colace) 1 tab BID PO Last administered on 08/08/17at 20:11; Start 08/07/17 at 09:00 Magnesium Hydroxide (Milk Of Magnesia Liq) 30 ml Q12H PRN PO Mild constipation ; Start 08/07/17 at 06:45 Sennosides (Senokot) 17.2 mg Q12H PRN PO Moderate constipation; Start 08/07/17 at 06:45 Bisacodyl (Dulcolax Supp) 10 mg DAILY PRN RECTAL SEVERE CONSITIPATION/ IF NPO ; Start 08/07/17 at 06:45 Lactulose (Lactulose Liq) 30 ml DAILY PRN PO SEVERE CONSITIPATION / IF PO; Start 08/07/17 at 06:45 Gabapentin (Neurontin) 300 mg ONCE ONCE PO Last administered on 08/07/17at 09:14 ; Start 08/07/17 at 08:45; Stop 08/07/17 at 08:46; Status DC Alendronate Sodium (Fosamax) 70 mg Q7D PO ; Start 08/07/17 at 08:45; Status UNV Atorvastatin Calcium (Lipitor) 10 mg HS PO Last administered on 08/08/17at 20:11 ; Start 08/07/17 at 21:00 Levothyroxine Sodium (Synthroid) 100 mcg DAILY PO Last administered on at 08:09; Start 08/07/17 at 09:00 Oxycodone HCl (Roxicodone) 10 mg Q4H PRN PO PAIN; Start 08/07/17 at 08:45; Status UNV Sertraline HCl (Zoloft) 50 mg DAILY PO Last administered on 08/08/17at 08:51; Start 08/07/17 at 09:00 Heparin Sodium (Porcine) (Heparin Inj) 5,000 units Q12HR SQ ; Start 08/07/17 at 09:00; Stop 08/07/17 at 09:00; Status DC Magnesium Sulfate 100 ml @ 300 mls/hr BOLUS ONCE IV ; Start 08/07/17 at 11:30; Stop 08/07/17 at 11:49; Status Cancel Magnesium Sulfate/ Dextrose 100 ml @ 100 mls/hr Q1H IV Last administered on 08/07/17at 20:05; Start 08/07/17 at 12:00; Stop 08/07/17 at 15:59; Status DC Magnesium Sulfate/ Dextrose 100 ml @ 100 mls/hr Q1H IV ; Start 08/07/17 at 12:00 ; Stop 08/07/17 at 13:59; Status Cancel Potassium Bicarb/ Potassium Chloride (K-Lyte Cl Eff) 50 meq ONCE ONCE PO Last administered on 08/07/17at 14:56; Start 08/07/17 at 15:00; Stop 08/07/17 at 15: 01; Status DC Potassium Chloride 100 ml @ 100 mls/hr BOLUS ONCE IV Last administered on 08/07at 14:56; Start 08/07/17 at 15:00; Stop 08/07/17 at 15:59; Status DC Potassium Bicarb/ Potassium Chloride (K-Lyte Cl Eff) 25 meq ONCE ONCE PO Last administered on 08/07/17at 20:05; Start 08/07/17 at 18:45; Stop 08/07/17 at 18: 46; Status DC Magnesium Sulfate/ Dextrose 100 ml @ 100 mls/hr NOW IV ; Start 08/07/17 at 19:45 ; Stop 08/07/17 at 23:00; Status DC Potassium Chloride (KCl) 40 meq ONCE ONCE PO Last administered on 08/08/17 07: 00; Start 08/08/17 at 06:45; Stop 08/08/17 at 06:50; Status DC Potassium Chloride 100 ml @ 50 mls/hr Q2H IV Last administered on 08/08/17 08: 09; Start 08/08/17 at 06:45; Stop 08/08/17 at 10:44; Status DC Gabapentin (Neurontin) 800 mg TID PO Last administered on 08/08/17 17:45; Start 08/08/17 at 13:00 Pantoprazole Sodium (Protonix) 20 mg DAILY PO Last administered on 08/08/17 11: 21; Start 08/08/17 at 10:30 Hydromorphone HCl (Dilaudid Pf Inj) 0.5 mg ONCE ONCE IV PUSH Last administered on 08/08/17 12:09; Start 08/08/17 at 12:00; Stop 08/08/17 at 12:01; Status DC Hydroxyzine HCl (Atarax) 10 mg ONCE ONCE PO Last administered on 08/08/17at 14: 36; Start 08/08/17 at 13:00; Stop 08/08/17 at 13:28; Status DC Nicotine (Habitrol 14 Mg Patch.24 Hr) 1 patch ONCE ONCE T-DERMAL Last administered on 08/08/17 18:26; Start 08/08/17 at 18:00; Stop 08/08/17 at 18:15; Status DC Nicotine (Habitrol 14 Mg Patch.24 Hr) 1 patch DAILY T-DERMAL ; Start 08/09/17 at 09:00 Miscellaneous Information 1 DAILY T-DERMAL ; Start 08/09/17 at 09:00 Oxycodone HCl (OxyCONTIN CR) 20 mg Q12HR PO Last administered on 08/08/17at 20:12 ; Start 08/08/17 at 21:00 Sodium Chloride 500 ml @ 500 mls/hr BOLUS ONCE IV Last administered on 23:10; Start 08/08/17 at 22:45; Stop 08/08/17 at 23:44; Status DC Family History Mother is alive, she had breast cancer status post lumpectomy. Father is alive, he has CLL. 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 She is a current smoker, smoking about a half a pack a day for the 25-30 years. Physical Exam Vital Signs Vital Signs Date Time Temp Pulse Resp B/P (MAP) Pulse Ox O2 Delivery O2 Flow Rate FiO2 08/09/17 08:34 97.8 87 18 130/63 (85) 100 08/09/17 06:00 102 08/09/17 04:52 90 08/09/17 04:19 98.5 95 18 132/87 (102) 98 08/09/17 03:00 102 08/09/17 02:00 94 08/09/17 01:00 90 08/09/17 00:19 98.6 88 18 144/86 (105) 100 08/09/17 00:12 96 08/08/17 23:00 90 08/08/17 22:00 94 08/08/17 21:00 90 08/08/17 20:28 80 08/08/17 20:17 98.5 90 18 129/64 (85) 97 08/08/17 19:00 92 08/08/17 17:06 80 08/08/17 16:00 81 08/08/17 15:25 98.0 83 18 137/72 (93) 97 08/08/17 15:00 94 08/08/17 14:00 80 08/08/17 13:00 76 08/08/17 12:00 74 08/08/17 11:17 98.1 73 18 128/64 (85) 97 08/08/17 11:00 77 08/08/17 10:00 76 08/08/17 09:00 80 Physical Exam GENERAL: This is a well-nourished, well-developed patient, in no apparent distress. SKIN: No rashes, ecchymoses or lesions. Cool and dry. HEAD: Atraumatic. Normocephalic. No temporal or scalp tenderness. EYES: Pupils equal round and reactive. Extraocular motions intact. No scleral icterus. No injection or drainage. CARDIOVASCULAR: Regular rate and rhythm without murmurs, gallops, or rubs. RESPIRATORY: Clear to auscultation. Breath sounds equal bilaterally. No wheezes , rales, or rhonchi. GASTROINTESTINAL: Abdomen soft, non-tender, nondistended. No hepato-splenomegaly , or palpable masses. No guarding. MUSCULOSKELETAL: Extremities without clubbing, cyanosis, or edema. Negative Homans sign bilaterally. NEUROLOGICAL: Awake and alert. normal speech, poor historian Laboratory Laboratory Tests Test 08/08/17 12:24 08/09/17 04:15 Potassium Level 3.7 3.5 White Blood Count 2.3 Red Blood Count 2.50 Hemoglobin 8.2 Hematocrit 22.5 Mean Corpuscular Volume 89.9 Mean Corpuscular Hemoglobin 32.8 Mean Corpuscular Hemoglobin Concent 36.5 Red Cell Distribution Width 13.8 Platelet Count 87 Mean Platelet Volume 6.9 Neutrophils (%) (Auto) 73.9 Lymphocytes (%) (Auto) 13.9 Monocytes (%) (Auto) 8.7 Eosinophils (%) (Auto) 3.2 Basophils (%) (Auto) 0.3 Neutrophils # (Auto) 1.7 Lymphocytes # (Auto) 0.3 Monocytes # (Auto) 0.2 Eosinophils # (Auto) 0.1 Basophils # (Auto) 0.0 CBC Comment AUTO DIFF Differential Comment AUTO DIFF CONFIRMED Platelet Estimate LOW Platelet Morphology Comment NORMAL Ovalocytes 1+ Blood Urea Nitrogen 13 Creatinine 1.74 Random Glucose 109 Total Protein 5.5 Albumin 2.7 Calcium Level 8.1 Alkaline Phosphatase 68 Aspartate Amino Transf (AST/SGOT) 14 Alanine Aminotransferase (ALT/SGPT) 18 Total Bilirubin 0.2 Sodium Level 135 Chloride Level 98 Carbon Dioxide Level 30.6 Anion Gap 6 Estimat Glomerular Filtration Rate 30 Result Diagram: 08/09/17 0415 08/09/17 0415 Assessment and Plan Problem List: (1) Hypokalemia ICD Codes: E87.6 - Hypokalemia Status: Acute Plan: electrolyte replacement during hospital stay overall improvement will continue to monitor with weekly labs as outpt she is not compliant with taking daily potassium as prescribed as outpt will replaced with hydration in infusion center. (2) Anemia ICD Codes: D64.9 - Anemia, unspecified Status: Acute Plan: continue to monitor during hospital stay and as scheduled as outpt, weekly stable at this time with hem at 8.2 (3) Vulvar cancer, carcinoma ICD Codes: C51.9 - Malignant neoplasm of vulva, unspecified Plan: will continue treatment as scheduled once discharged from hospital weekly IV chemotherapy during radiation can consider IV weekly hydration as well to help increase hydration discharge per medicine team Physician Attestation This consult will be discussed with Dr. Aguilar and any further orders will follow. Problem Qualifiers (1) Anemia: Qualified Codes: D64.9 - Anemia, unspecified Yifan Roberts Aug 09, 2017 09:05
[2017-08-09] MEDS: GABAPENTIN 400 MG CAP PO SCH ×3 (09:48→16:35)
[2017-08-09] MEDS: SERTRALINE HCL 50 MG TAB PO SCH (09:49)
[2017-08-09] MEDS: LEVOTHYROXINE SODIUM 100 MCG TAB PO SCH (09:49)
[2017-08-09] MEDS: PANTOPRAZOLE SOD 20 MG DELAYED RELEASE TAB PO SCH (09:49)
[2017-08-09] MEDS: oxyCODONE HCL 20 MG CONTROLLED RELEASE TAB PO SCH (09:49)
[2017-08-09] MEDS: DOCUSATE SODIUM 50 MG/SENNA 8.6 MG TAB PO SCH (09:49)
[2017-08-09] MEDS: SODIUM CHLORIDE 0.9% FLUSH 10 ML FLUSH IV FLUSH SCH (09:50)
[2017-08-09] MEDS ORDERED: ZOFR4TAB PO (10:42)
[2017-08-09] MEDS ORDERED: oxyCODONE SR PO (10:42)
[2017-08-09] MEDS ORDERED: GABA300C5 PO (10:42)
--- NOTE | 2017-08-09 10:43 | HHI.DCPOC ---
Discharge Care Plan Diagnosis: (1) Hypomagnesemia (2) Peripheral neuropathy (3) Vulvar cancer, carcinoma (4) Anemia (5) Hypokalemia Goals to Promote Your Health * To prevent worsening of your condition and complications * To maintain your health at the optimal level Directions to Meet Your Goals Take your medications as prescribed Follow your dietary instruction Follow activity as directed Keep your appointments as scheduled Take your immunizations and boosters as scheduled If your symptoms worsen call your PCP, if no PCP go to Urgent Care Center or Emergency Room Smoking is Dangerous to Your Health. Avoid second hand smoke Call the 24-hour hour crisis hotline for domestic abuse at Neelima Foreman MD Aug 09, 2017 10:43
--- NOTE | 2017-08-09 10:46 | HHI.DS ---
Discharge Summary Admission Date Aug 07, 2017 at 06:44 Admitting Diagnosis hypokalemia, anemia Brief History - From Admission This is a 52-year-old female with past medical history of breast and cervical cancer in remission who is now being treated for vaginal cancer with chemotherapy radiation on 01/16 cycles who is complaining of bilateral calf and feet tingling. Patient stated that she had chemotherapy at Dr. Aguilar office for 8 hours yesterday and then when she got home around 7 PM she started feeling abnormal sensation of the bilateral calf and feet described as tingling or is if her feet are trying to wake up. Patient very anxious to get out and wants to be treated quickly for this. She said that she feels nauseous but this does not prevent her from eating. Patient stated that she has always had a poor appetite. Denies any emesis. Denies any abdominal pain. Denied any fevers or chills. She denies any fecal or urinary incontinence. She also denies any lower extremity weakness. All other review of system reviewed and negative. CBC/BMP: 08/09/17 0415 08/09/17 0415 Significant Findings Laboratory Tests Test 08/07/17 05:46 08/07/17 11:23 08/07/17 19:31 08/08/17 04:00 White Blood Count 3.5 TH/MM3 (4.0-11.0) 2.6 TH/MM3 (4.0-11.0) Red Blood Count 2.62 MIL/MM3 (4.00-5.30) 2.43 MIL/MM3 (4.00-5.30) Hemoglobin 8.6 GM/DL (11.6-15.3) 8.0 GM/DL (11.6-15.3) 8.0 GM/DL (11.6-15.3) Hematocrit 23.0 % (35.0-46.0) 21.6 % (35.0-46.0) Mean Corpuscular Hemoglobin Concent 37.6 % (32.0-36.0) 37.0 % (32.0-36.0) Platelet Count 96 TH/MM3 (150-450) 77 TH/MM3 (150-450) Neutrophils (%) (Auto) 81.8 % (16.0-70.0) Lymphocytes # (Auto) 0.3 TH/MM3 (1.0-4.8) 0.5 TH/MM3 (1.0-4.8) Platelet Estimate LOW (NORMAL) LOW (NORMAL) Creatinine 1.41 MG/DL (0.50-1.00) 1.49 MG/DL (0.50-1.00) Random Glucose 154 MG/DL (74-106) 115 MG/DL (74-106) Calcium Level 7.5 MG/DL (8.5-10.1) 7.3 MG/DL (8.5-10.1) Sodium Level 134 MEQ/L (136-145) 134 MEQ/L (136-145) Potassium Level 2.3 MEQ/L (3.5-5.1) 2.5 MEQ/L (3.5-5.1) 3.0 MEQ/L (3.5-5.1) 2.7 MEQ/L (3.5-5.1) Chloride Level 95 MEQ/L (98-107) 97 MEQ/L (98-107) Estimat Glomerular Filtration Rate 39 ML/MIN (>89) 36 ML/MIN (>89) Magnesium Level 1.2 MG/DL (1.5-2.5) 1.2 MG/DL (1.5-2.5) Total Iron Binding Capacity 216 MCG/DL (250-450) Basophilic Stippling FAINT (NORMAL) Total Protein 5.4 GM/DL (6.4-8.2) Albumin 2.7 GM/DL (3.4-5.0) Protein Corrected Calcium 8.2 MG/DL (8.5-10.1) Test 08/08/17 12:24 08/09/17 04:15 White Blood Count 2.3 TH/MM3 (4.0-11.0) Red Blood Count 2.50 MIL/MM3 (4.00-5.30) Hemoglobin 8.2 GM/DL (11.6-15.3) Hematocrit 22.5 % (35.0-46.0) Mean Corpuscular Hemoglobin Concent 36.5 % (32.0-36.0) Platelet Count 87 TH/MM3 (150-450) Mean Platelet Volume 6.9 FL (7.0-11.0) Neutrophils (%) (Auto) 73.9 % (16.0-70.0) Monocytes (%) (Auto) 8.7 % (0.0-8.0) Neutrophils # (Auto) 1.7 TH/MM3 (1.8-7.7) Lymphocytes # (Auto) 0.3 TH/MM3 (1.0-4.8) Platelet Estimate LOW (NORMAL) Ovalocytes 1+ (NORMAL) Creatinine 1.74 MG/DL (0.50-1.00) Random Glucose 109 MG/DL (74-106) Total Protein 5.5 GM/DL (6.4-8.2) Albumin 2.7 GM/DL (3.4-5.0) Calcium Level 8.1 MG/DL (8.5-10.1) Aspartate Amino Transf (AST/SGOT) 14 U/L (15-37) Sodium Level 135 MEQ/L (136-145) Estimat Glomerular Filtration Rate 30 ML/MIN (>89) Pt Condition on Discharge: Stable Discharge Disposition: [facility] Discharge Instructions DIET: Follow Instructions for: As Tolerated, No Restrictions Activities you can perform: Regular-No Restrictions Neelima Foreman MD Aug 09, 2017 10:46
--- NOTE | 2017-08-09 16:01 | MB ---
cc: Nirali Aguilar MD, Lydia T MD DATE OF CONSULT: PHYSICIAN REQUESTING CONSULT: Dr. Burgess and Dr. Neelima Foreman. REASON FOR CONSULTATION: Ongoing treatment for vaginal cancer. This patient is seen. Her findings are reviewed. Her history is reviewed. She is counseled by me in conjunction with our nurse practitioner, Yifan Roberts, and I agree with her findings, assessment and plan. 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 Most of the tumor was vaginal, so she is probably at least a clinical stage II vaginal cancer, although the possibility of a vulvar origin is considered. Nevertheless, she was not a surgical candidate. We consulted Dr. Rolan Samuels, who saw her in our office and then moved forward shortly thereafter with radiation. During radiation, she has been getting cisplatin chemotherapy. Recently, her creatinine had been increasing. We changed her from cisplatin to carboplatin to try to reduce the nephrotoxicity. She has been given IV fluids, trying to keep her hydrated. Overall, she reports that her treatments have been going reasonably well. She does not have any overwhelming new symptomatology, other than this irritation to the skin and the vulvovaginal region. She has got significant nausea that is preexisting. She has got significant lower extremity neuropathy that was preexisting, and also some decreased hearing acuity; she attributes most of those to being related to her previous systemic treatment for breast cancer. Nevertheless, she remains motivated and wishes to seek treatment for her [employer] cancer and has been moving forward in that regard. She was admitted to the hospital because of constellation of symptoms, worsening of her lower extremity neuropathy. She has had dehydration, electrolyte abnormalities, altered renal function and overall with diminished performance status. She has now been hydrating with some correction of her electrolytes, supportive care. Some modifications to her medications have been provided to maintain comfort and to reduce her nausea, to control her neuropathy and pain, and she reports that she is feeling much better. It appears as though there are plans for discharge. She states that she thinks she is going to a halfway facility for a period of time, which would be good if that help is available. She is seen now in consultation for further evaluation, recommendations regarding these findings. PAST MEDICAL HISTORY: All reviewed, as documented in the chart. I have nothing to add in that regard. SURGICAL HISTORY: All reviewed, as documented in the chart. I have nothing to add in that regard. MEDICATIONS: All reviewed, as documented in the chart. I have nothing to add in that regard. REVIEW OF SYSTEMS: All reviewed, as documented in the chart. I have nothing to add in that regard. FAMILY HISTORY: All reviewed, as documented in the chart. I have nothing to add in that regard. ALLERGIES: ALL REVIEWED, DOCUMENTED IN THE CHART. I HAVE NOTHING TO ADD IN THAT REGARD. Most recent H and H 8.2/22.5, white count 2.3, platelets 87, all reduced, showing the effect of ongoing treatment. Electrolytes show that her creatinine remains elevated. BUN and creatinine 13 and 1.74. She has been afebrile since admission. Pulse 87-102, respirations 16-18. Blood pressure has been 128-150 over 63-84. O2 saturations greater than or equal to 97%. She is alert and oriented to time and street, talkative. In keeping with the objectives of this consult, she was not reexamined today, given relatively recent office exam and ongoing treatment, but our meeting was limited to consultative discussion. She had questions asked and answered to the best of my capacity. She reiterated her interest in moving forward with treatment. She understands the problems with some underlying compromised renal function, which may affect the treatment that we can give. She is aware that we changed from cisplatin to carboplatin. She may need to get periodic hydration to help offset some of the other issues. Medications changes are as noted. She is feeling more comfortable. She does not need any additional medications at this point. More questions were asked and answered. She expressed good understanding. We wish her all the best, and she knows that she can follow up with us at any time as needed and as scheduled. ASSESSMENT: 1. At least clinical stage II squamous cell carcinoma of the vagina/vulva with ongoing treatment. 2. Electrolyte abnormality with dehydration, pain, nausea, diminished performance status, failure to thrive. 3. Status post addressing these issues to the extent possible with IV fluids, correction of electrolytes, supportive care. 4. Extensive discussion. PLAN: 1. Continue present management, grateful for the excellent medical care. 2. Discharge planning as per primary medical team. 3. Follow up as scheduled for ongoing radiation and chemotherapy as well as lab draws and can see me in my office 1-2 weeks after discharge or at any time as needed. Thank you for the consultation. MD DIONY Morgan/BERTRAM , 03:23 PM , 03:59 PM
[2017-08-09] MEDS ORDERED: SODIUM CHLORIDE 0.9% FLUSH 10 ML FLUSH IV FLUSH PRN (16:30)
== END 2017-08-09 18:55 | disposition home or self-care (01) ==
LOC: NEPC 05:19 → NEDA 06:44 → INTOOBSV 06:44 → NEDH 11:10 → HCIN 18:11
PROVIDERS: ADMIT Family Medicine; ATTEND Family Medicine
DX: D64.9 Anemia, unspecified (principal); E87.6 Hypokalemia; C52 Malignant neoplasm of vagina; C51.9 Malignant neoplasm of vulva, unspecified; E03.9 Hypothyroidism, unspecified; E78.5 Hyperlipidemia, unspecified; E87.1 Hypo-osmolality and hyponatremia; E86.0 Dehydration; N17.9 Acute kidney failure, unspecified; E83.42 Hypomagnesemia; F17.210 Nicotine dependence, cigarettes, uncomplicated; M79.7 Fibromyalgia; K21.9 Gastro-esophageal reflux disease without esophagitis; M81.0 Age-related osteoporosis without current pathological fracture; G57.90 Unspecified mononeuropathy of unspecified lower limb; F41.9 Anxiety disorder, unspecified; N89.8 Other specified noninflammatory disorders of vagina; T45.1X5A Adverse effect of antineoplastic and immunosuppressive drugs, initial encounter; N18.9 Chronic kidney disease, unspecified; Z66 Do not resuscitate; Z85.3 Personal history of malignant neoplasm of breast; Z85.41 Personal history of malignant neoplasm of cervix uteri; Z92.3 Personal history of irradiation
CPT/HCPCS: 80048; 80053; 82607; 82728; 82746; 83540; 83550; 83735; 84132; 85018; 85025; 85044; 96361; 96365; 96366; 96368; 96375; 96376; 97163; 97167; 99285; G0378; G8987; G8988; J1170; J1642; J2405; J3475; J3480; J7030; J7040

== ENCOUNTER 2017-08-11 07:59 | Emergency (ER) | payer OTHER ==
[~2017-08-11] VITALS: Ht 180.3 cm; Wt 65.0 kg
[~2017-08-11 07:59] MED LIST changes: +GABA300C5 PO; +OMEP20CA2 PO; +ZOFR4TAB PO; +oxyCODONE SR PO
[2017-08-11 08:14] VITALS: BP 140/59; PULSE 84; RESP 18; TEMP 98.4; O2SAT 98
[2017-08-11] MEDS ORDERED: ONDANSETRON HCL 4 MG/2 ML VIAL IVP ONE (08:15)
[2017-08-11] MEDS ORDERED: SODIUM CHLORIDE 0.9% FLUSH 10 ML FLUSH IV FLUSH PRN (08:15)
[2017-08-11] MEDS ORDERED: SODIUM CHLORID 0.9% 500 ML INJ 500 ML IV ONE (08:15)
[2017-08-11] MEDS ORDERED: PROMETHAZINE INJ 25 MG/ML VIAL IM ONE (08:15)
--- NOTE | 2017-08-11 08:21 | PD ---
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 In the past month this is her fourth presentation for similar, she has had one observation status for hypokalemia and she was discharged from the hospital 2 days ago. Her oncologist is Dr. Aguilar. Patient states she has been nauseous and vomiting ever since 3 weeks ago when she received cycle of chemotherapy. She states that today she just has been able to tolerate any breakfast is thrown up 4 times today nonbloody and non-bilious emesis. She is taking Zofran at home without any relief. She endorses generalized body cramps but no new pain. Denies abdominal pain or chest pain. Denies any shortness of breath. PFSH Past Medical History Arthritis: Yes Asthma: Yes Anxiety: Yes Depression: No Cancer: Yes (BREAST, CERVICAL, VAGINAL) Cardiovascular Problems: No Chemotherapy: Yes COPD: No Cerebrovascular Accident: No Diabetes: No Endocrine: No Gastrointestinal Disorders: Yes GERD: Yes Genitourinary: Yes Hepatitis: No Hiatal Hernia: No Immune Disorder: No Kidney Stones: No Musculoskeletal: Yes Neurologic: Yes Psychiatric: Yes (anxiety) Reproductive: No Respiratory: Yes (Asthma) Migraines: No Radiation Therapy: Yes Renal Failure: Yes Seizures: Yes Sleep Apnea: No Thyroid Disease: Yes (hypothyroid) Ulcer: Yes ?: Not Tubal Ligation: Yes Past Surgical History Abdominal Surgery: Yes AICD: No Arteriovenous Shunt: No Body Medical Devices: SURGICAL CLIPS LEFT ABDOMEN Cardiac Surgery: No Ear Surgery: No Endocrine Surgery: No Eye Surgery: No Genitourinary Surgery: No Gynecologic Surgery: Yes (TRAM, TISSUE TRAFFIC LAW ATTORNEY LEFT BREAST) Hysterectomy: Yes Insulin Pump: No Joint Replacement: No Oral Surgery: No Pacemaker: No Thoracic Surgery: No Tonsillectomy: Yes Other Surgery: Yes (CHEST WALL RECONSTRUCTION, SINUS SURGERY) Social History Alcohol Use: No Tobacco Use: No Substance Use: Yes (occasional marijuana) Allergies-Medications (Allergen,Severity, Reaction): Coded Allergies: No Known Allergies (Verified Allergy, Unknown, 08/11/17) Reported Meds & Prescriptions Reported Meds & Active Scripts Active Gabapentin 300 Mg Cap 300 Mg PO HS Zofran (Ondansetron HCl) 4 Mg Tab 4 Mg PO Q6HR PRN [oxyCODONE SR] 20 MG Tabcr 20 Mg PO Q12HR Reported Omeprazole 20 Mg Cap PO DAILY Atorvastatin (Atorvastatin Calcium) 10 Mg Tab 10 Mg PO HS Oxycodone (Oxycodone HCl) 10 Mg Tab 10 Mg PO Q4H PRN Zoloft (Sertraline HCl) 50 Mg Tab 50 Mg PO DAILY Fosamax (Alendronate Sodium) 70 Mg Tab 70 Mg PO Q7D Levoxyl (Levothyroxine Sodium) 100 Mcg Tab 100 Mcg PO DAILY Review of Systems Except as stated in HPI: all other systems reviewed are Neg Physical Exam Narrative GENERAL: Well-developed, well-nourished, unkempt long fingernails. Long toenails. SKIN: Focused skin assessment warm/dry. HEAD: Atraumatic. Normocephalic. EYES: Pupils equal and round. No scleral icterus. No injection or drainage. ENT: No nasal bleeding or discharge. Mucous membranes pink and moist. NECK: Trachea midline. No JVD. CARDIOVASCULAR: Regular rate and rhythm. No murmur appreciated. RESPIRATORY: No accessory muscle use. Clear to auscultation. Breath sounds equal bilaterally. GASTROINTESTINAL: Abdomen soft, non-tender, nondistended. Hepatic and splenic margins not palpable. MUSCULOSKELETAL: No obvious deformities. No clubbing. No cyanosis. No edema. NEUROLOGICAL: Awake and alert. No obvious cranial nerve deficits. Motor grossly within normal limits. Normal speech. PSYCHIATRIC: Appropriate mood and affect; insight and judgment normal. Data Data Last Documented VS Vital Signs Date Time Temp Pulse Resp B/P (MAP) Pulse Ox O2 Delivery O2 Flow Rate FiO2 08/11/17 09:33 50 18 135/68 (90) 97 Room Air 08/11/17 08:14 98.4 Orders Orders Basic Metabolic Panel (Bmp) (08/11/17 08:13) Complete Blood Count With Diff (08/11/17 08:13) Iv Access Insert/Monitor (08/11/17 08:13) Ecg Monitoring (08/11/17 08:13) Oximetry (08/11/17 08:13) Ondansetron Inj (Zofran Inj) (08/11/17 08:15) Sodium Chloride 0.9% Flush (Ns Flush) (08/11/17 08:15) Sodium Chlorid 0.9% 500 Ml Inj (Ns 500 M (08/11/17 08:15) Promethazine Inj (Phenergan Inj) (08/11/17 08:15) Potassium Chloride (Kcl) (08/11/17 10:00) Calcium Carbonate Chew (Tums Chew) (08/11/17 10:00) Ed Discharge Order (08/11/17 10:17) Labs Laboratory Tests Test 08/11/17 08:30 White Blood Count 1.6 TH/MM3 Red Blood Count 2.83 MIL/MM3 Hemoglobin 9.3 GM/DL Hematocrit 25.6 % Mean Corpuscular Volume 90.2 FL Mean Corpuscular Hemoglobin 32.7 PG Mean Corpuscular Hemoglobin Concent 36.3 % Red Cell Distribution Width 13.9 % Platelet Count 109 TH/MM3 Mean Platelet Volume 7.0 FL Neutrophils (%) (Auto) 66.0 % Lymphocytes (%) (Auto) 17.8 % Monocytes (%) (Auto) 12.2 % Eosinophils (%) (Auto) 3.6 % Basophils (%) (Auto) 0.4 % Neutrophils # (Auto) 1.1 TH/MM3 Lymphocytes # (Auto) 0.3 TH/MM3 Monocytes # (Auto) 0.2 TH/MM3 Eosinophils # (Auto) 0.1 TH/MM3 Basophils # (Auto) 0.0 TH/MM3 CBC Comment AUTO DIFF Differential Total Cells Counted 100 Neutrophils % (Manual) 70 % Band Neutrophils % 6 % Lymphocytes % 12 % Monocytes % 11 % Eosinophils % 1 % Neutrophils # (Manual) 1.2 TH/MM3 Nucleated Red Blood Cells 1 /100 WBC Differential Comment FINAL DIFF MANUAL Toxic Granulation 1+ Toxic Vacuolation PRESENT Platelet Estimate LOW Platelet Morphology Comment NORMAL Ovalocytes 1+ Blood Urea Nitrogen 16 MG/DL Creatinine 1.44 MG/DL Random Glucose 138 MG/DL Calcium Level 7.8 MG/DL Sodium Level 137 MEQ/L Potassium Level 3.0 MEQ/L Chloride Level 96 MEQ/L Carbon Dioxide Level 32.5 MEQ/L Anion Gap 9 MEQ/L Estimat Glomerular Filtration Rate 38 ML/MIN MDM Medical Decision Making Medical Screen Exam Complete: Yes Emergency Medical Condition: Yes Differential Diagnosis Dehydration, medication reaction, nausea, vomiting, electrolyte abnormality. Narrative Course Patient room to the emergency department, no nausea vomiting observed in the emergency department, given Zofran and Phenergan, she states she is feeling well but is just cold and here. Found to be mildly neutropenic with a total neutrophil count of 1100, no fever in the emergency department. No sign symptoms of infection. Potassium is minimally low at 3.0, calcium mainly low as well both of these were repleted p.o. Patient was then discussed with Dr. Aguilar, discussed the patient did not look significantly dehydrated and her creatinine is at baseline. Discussed the possibility that she is having a poor social circumstance and this also leading to repeat visits the emergency department and he seconded that this may be part of it, he wonders the patient also has some underlying bipolar. Still the patient is not a threat to herself or others at this time, she is feeling better and has met discharge criteria. Dr. Aguilar has discussed me that at her last admission that considered sending her home to an assisted living facility, patient states she would still be amenable to going to an assisted living facility however there was a case management hold up on the last admission. I discussed the patient with our case management and they will come discussed with the patient, her insurance may not cover an assisted living facility but possibly we will arrange for home health care and social insurance analyst consultation Diagnosis Primary Impression: Nausea & vomiting Additional Impressions: Hypokalemia Hypocalcemia Disposition: 01 DISCHARGE HOME Condition: Stable Tae Rosado MD Aug 11, 2017 08:21
[2017-08-11 08:34] VITALS: O2SAT 98
[2017-08-11 08:54] LABS: AUTOMATED NEUTROPHIL # 1.1 TH/MM3 (1.8-7.7); BASOPHIL % 0.4 % (0.0-2.0); EOSINOPHIL # 0.1 TH/MM3 (0-0.4); EOSINOPHIL % 3.6 % (0.0-4.0); HEMATOCRIT 25.6 % (35.0-46.0); HEMOGLOBIN 9.3 GM/DL (11.6-15.3); LYMPH % 17.8 % (9.0-44.0); LYMPHOCYTE # 0.3 TH/MM3 (1.0-4.8); MEAN CELL VOLUME 90.2 FL (80.0-100.0); MEAN CORPUSCULAR HEMOGLOBIN 32.7 PG (27.0-34.0); MONO % 12.2 % (0.0-8.0); MONOCYTE # 0.2 TH/MM3 (0-0.9); PLATELET COUNT 109 TH/MM3 (150-450); RED BLOOD COUNT 2.83 MIL/MM3 (4.00-5.30); RED CELL DISTRIBUTION WIDTH 13.9 % (11.6-17.2); WHITE BLOOD COUNT 1.6 TH/MM3 (4.0-11.0)
[2017-08-11 08:56] LABS: MEAN CORPUSCULAR HGB CONC 36.3 % (32.0-36.0)
[2017-08-11 09:07] LABS: BICARBONATE 32.5 MEQ/L (21.0-32.0); CALCIUM 7.8 MG/DL (8.5-10.1); CREATININE 1.44 MG/DL (0.50-1.00)
[2017-08-11 09:25] LABS: BANDS 6 % (0-6); CORRECTED NUCLEATED RBC 1 /100 WBC (0-0); LYMPHOCYTES 12 % (9-44); MONOCYTES 11 % (0-8); NEUTROPHIL # MANUAL DIFF 1.2 TH/MM3 (1.8-7.7); NUCLEATED RED BLOOD CELL 1 (0-0); POLYS (SEG NEUTROPHILS) 70 % (16-70)
[2017-08-11 09:26] LABS: OVALOCYTES 1+ (NORMAL); TOXIC GRANULATION 1+ (NORMAL); TOXIC VACUOLATION PRESENT (NONE SEEN)
[2017-08-11 09:33] VITALS: BP 135/68; PULSE 50; RESP 18; O2SAT 97
[2017-08-11] MEDS ORDERED: CALCIUM CARBONATE 500 MG CHEWABLE TAB CHEW ONE (10:00)
[2017-08-11] MEDS ORDERED: POTASSIUM CHLORIDE 20 MEQ CONTROLLED RELEASE TAB PO ONE (10:00)
--- NOTE | 2017-08-11 10:11 | HHI.FF ---
Face to Face Verification Diagnosis: (1) Nausea & vomiting (2) Vulvar cancer, carcinoma Home Health Nursing Order: Medical education Signs/symptoms of disease process Home Health Aide Order: To Assist In: Bathing and personal care, warp spooler and meal prep Defense Analyst Order: To Evaluate: Living conditions/environment, Support services Order: To Provide: Long range planning, Community services I have seen patient Rosalinda Hagen on 08/11/17. My clinical findings support the need for the requested home health care services because: Deconditioned w/ increased weakness Med compliance is questionable Limited ability to care for self Need for psychosocial assistance I certify that my clinical findings support that this patient is homebound because: Need for psychosocial assistance Tae Rosado MD Aug 11, 2017 10:11
== END 2017-08-11 10:42 | disposition home or self-care (01) ==
LOC: NEPE 07:59
DX: R11.2 Nausea with vomiting, unspecified (principal); E87.6 Hypokalemia; E83.51 Hypocalcemia; C52 Malignant neoplasm of vagina
CPT/HCPCS: 80048; 85007; 85027; 96361; 96372; 96374; 99284; J2405; J2550; J7040